=== PATIENT | female | born 1950 | race Caucasian/White ===

== ENCOUNTER 2017-09-17 09:52 | Observation (INO) ==
--- NOTE | 2017-09-17 10:07 | Emergency Department Note ---
Disposition Clinical Impression: Weakness Disposition: Still a Patient Referrals: Sushil Robledo DO [Primary Care Provider] - Forms: ED Satisfaction Letter Time of Disposition: 10:14 Weakness HPI - General Chief complaint: ED Weakness Stated complaint: weakness Time Seen by Provider: 09/17/17 09:57 Source: patient, EMS Mode of arrival: EMS Limitations: no limitations Nursing Notes Reviewed: Yes Vital Signs Reviewed: Yes - History of Present Illness HPI Narrative: Vision feels generally weak. No localization. She states she fell but denies injury other than bumping her right elbow. She states her family told her her speech seems slurred but she denies this. She thinks she just has a dry mouth. Pt Subjective Complaint: generalized weakness/fatigue Onset (ago): hour(s) Duration: constant Location: generalized Pain Scale: 0 Improves with: none Worsens with: movement Associated symptoms: Reports: denies other symptoms - Related Data Allergies Allergy/AdvReac Type Severity Reaction Status Date / Time No Known Allergies Allergy Verified 09/17/17 09:57 All systems ED: reviewed and negative except as stated. Constitutional: Reports: weakness Eyes: Reports: as per HPI ENT ED: Reports: as per HPI Cardiovascular: Reports: as per HPI Respiratory: Reports: as per HPI Gastrointestinal: Reports: as per HPI Genitourinary: Reports: as per HPI Musculoskeletal: Reports: as per HPI Integumentary: Reports: as per HPI Neurological: Reports: as per HPI Psychiatric: Reports: as per HPI Endocrine: Reports: as per HPI Hematological/Lymphatic: Reports: as per HPI Allergic/Immunologic: Reports: as per HPI Past Medical History - Past Medical History Source: patient Medical history: Reports: other Psychiatric history: Reports: anxiety, depression - Social History Smoking Status: Never smoker Smokeless Tobacco Status: No Alcohol use: Reports: none Drug use: Reports: none Physical Exam - General Limitations: no limitations General appearance: alert, in no apparent distress - Head Head exam: atraumatic - Eye Eye exam: Present: normal appearance, PERRL - ENT ENT exam: normal exam, mucous membranes dry - Neck Neck exam: Present: normal inspection - Chest Chest inspection: Present: normal inspection, symmetric chest wall rise - Respiratory Respiratory exam: Present: normal lung sounds bilaterally - Cardiovascular Cardiovascular exam: Present: regular rate, normal rhythm - Abdominal Exam Abdominal exam: Present: soft, Non-Tender. Absent: tenderness - Rectal Exam Rectal exam: Present: deferred - Extremities Exam Extremities exam: Present: normal inspection - Neurological Exam Neurological exam: Present: alert, oriented X3, CN II-XII intact, other (Equal strength in her upper and lower extremities bilaterally. No facial droop or asymmetry.) - Psychiatric Psychiatric exam: Present: normal affect, normal mood - Skin Skin exam: Present: warm, dry, intact Course Course Narrative: Patient presents with generalized weakness. Her symptoms are inconsistent with an acute stroke. I we will check labs and urinalysis and evaluate for an acute metabolic or infectious process - Reevaluation(s) Reevaluation #1: Visual history obtained from family. They state this morning the patient was found cool to the touch and slow to respond. They states her eyes looked droopy and they thought her speech was slurred. I will obtain a CT scan of her head Reevaluation #2: Care to be endorsed to Dr. Amaya at 11am ending labs, CT head, reevaluation. He will complete a final disposition Vital Signs Temperature 97.4 F L 09/17/17 09:57 Pulse Rate 72 09/17/17 09:57 Respiratory Rate 16 09/17/17 09:57 Blood Pressure 116/80 09/17/17 09:57 O2 Sat by Pulse Oximetry 95 09/17/17 09:57 Temperature 97.4 F L 09/17/17 09:57 Pulse Rate 84 09/17/17 10:23 Respiratory Rate 16 09/17/17 10:23 Blood Pressure 116/80 09/17/17 10:23 O2 Sat by Pulse Oximetry 95 09/17/17 10:23 Oxygen Delivery Oxygen Delivery Nasal Cannula Weakness - EKG Data EKG attestation: Yes I reviewed and interpreted this EKG. EKG results narrative: Normal sinus rhythm with PVCs rate 73 OK 186 QRS 106 QT/QTc 420/446. Left axis deviation.
[2017-09-17 10:39] LABS: Basophils # 0.1 K/mcL (0.0-0.2); Basophils % 0.4 %; Eosinophils # 0.3 K/mcL (0.0-0.6); Eosinophils % 2.2 %; Hematocrit 49.2 % (35.3-44.9); Hemoglobin 15.5 g/dL (11.5-15.4); Immature Granulocytes % 0.3 % (0-4); Lymphocytes # 1.7 K/mcL (0.6-4.6); Lymphocytes % 14.3 %; Mean Corpuscular HGB Conc 31.5 g/dL (31.6-35.5); Mean Corpuscular Hemoglobin 25.7 pg (28.0-33.3); Mean Corpuscular Volume 81.5 fL (83.0-100.0); Mean Platelet Volume 9.8 fL (9.4-12.4); Monocytes # 0.9 K/mcL (0.0-1.3); Monocytes % 7.3 %; Neutrophils # 9.1 K/mcL (1.6-8.9); Platelet Count 256 K/mcL (140-400); Red Blood Count 6.04 M/mcL (3.82-4.97); Red Cell Distribution Width 14.4 % (11.5-14.5); Segmented Neutrophils % 75.5 %
[2017-09-17 10:54] LABS: Alanine Aminotransferase 11 Units/L (0-55); Albumin 3.6 g/dL (3.5-5.0); Albumin/Globulin Ratio 1.1 (1.1-2.2); Alkaline Phosphatase 32 Units/L (38-126); Aspartate Amino Transferase 16 Units/L (5-34); BUN/Creatinine Ratio 20 (6-26); Blood Urea Nitrogen 16 mg/dL (7-20); Calcium 9.2 mg/dL (8.6-10.8); Carbon Dioxide 23 mEq/L (19-29); Chloride 107 mEq/L (98-109); Globulin 3.4 g/dL (2.4-3.5); Glucose 93 mg/dL (70-99); Osmolality,Calculated 287 (280-300); Potassium 4.3 mEq/L (3.5-4.5); Sodium 138 mEq/L (136-145); eGFR For African Americans > 60 (> 60); eGFR For Non-African Americans > 60 (> 60)
--- NOTE | 2017-09-17 11:47 | Emergency Department Note ---
Disposition Clinical Impression: Weakness, Slurred speech Disposition: Admitted As Inpatient Time of Disposition: 13:02 Weakness HPI - General Chief complaint: ED Weakness Stated complaint: weakness Time Seen by Provider: 09/17/17 09:57 Source: patient, EMS Mode of arrival: EMS Limitations: no limitations Nursing Notes Reviewed: Yes Vital Signs Reviewed: Yes - History of Present Illness HPI Narrative: Mrs. Fritz, a 66-year-old female, presents from home with daughter and granddaughters bedside for evaluation of weakness. Onset over the past 1-2 days. This morning, patient fell twice; once in the bathroom and once her room. This was before she taken her morning medications. No loss of consciousness. Patient denies head trauma. Her only reported injury is hitting her left elbow for which she has no functional complaints. Patient notes she feels generally weak with no notable localization. Family notes mild slurring of speech this morning however patient denies this. Patient does note urinary frequency and urgency with no burning or pain with urination and no hesitancy. Patient lives at home with her 2 granddaughters. Home medications: Ativan, bupropion, metoprolol, Celexa, levothyroxine; unknown dosages Patient has a pacemaker in place predisposing her from having an MRI. Pt Subjective Complaint: generalized weakness/fatigue Location: generalized Pain Scale: 0 Improves with: none Worsens with: movement Associated symptoms: Reports: denies other symptoms - Related Data Home Medications Medication Instructions Recorded Confirmed BuPROPion SR (12 HR) [Wellbutrin 150 mg PO DAILY 09/17/17 09/17/17 SR] Citalopram Hydrobromide 20 mg PO DAILY 09/17/17 09/17/17 [Citalopram HBr] LORazepam [Ativan] 1 mg PO TID 09/17/17 09/17/17 Levothyroxine [Synthroid] 50 mcg PO DAILY 09/17/17 09/17/17 Metoprolol Succinate 200 mg PO DAILY 09/17/17 09/17/17 Omeprazole [PriLOSEC] 20 mg PO DAILY 09/17/17 09/17/17 Allergies Allergy/AdvReac Type Severity Reaction Status Date / Time No Known Allergies Allergy Verified 09/17/17 12:33 All systems ED: reviewed and negative except as stated. Review of Systems: As Per HPI Constitutional: Reports: weakness Eyes: Reports: as per HPI ENT ED: Reports: as per HPI Cardiovascular: Reports: as per HPI Respiratory: Reports: as per HPI Gastrointestinal: Reports: as per HPI Genitourinary: Reports: as per HPI Musculoskeletal: Reports: as per HPI Integumentary: Reports: as per HPI Neurological: Reports: as per HPI Psychiatric: Reports: as per HPI Endocrine: Reports: as per HPI Hematological/Lymphatic: Reports: as per HPI Allergic/Immunologic: Reports: as per HPI Past Medical History - Past Medical History Medical history: Reports: other Psychiatric history: Reports: anxiety, depression - Social History Smoking Status: Never smoker Smokeless Tobacco Status: No Alcohol use: Reports: none Drug use: Reports: none Physical Exam Vital Signs Reviewed General: Patient is alert, oriented, and in no acute distress. HEENT: No facial asymmetry. Head is normocephalic and atraumatic. PERRLA, EOMI. oral mucosa moist. Trachea midline. No hematoma, ecchymosis, abrasions on patient's face or scalp. Cardiovascular: Heart regular rate and rhythm without clicks, rubs, gallops, or murmurs. No JVD. PMI nondisplaced. Bilateral radial and posterior tibial pulses 2/4 equal. Trace pedal edema bilaterally. Respiratory: Symmetric chest rise with good respiratory effort. Bilateral breath sounds are clear without wheezing, crackles, or rhonchi. Abdomen: Bowel sounds present normoactive x-4 quadrants. Abdomen is soft, nondistended, and nontender. No organomegaly noted. Musculoskeletal: Muscle strength 5/5 and symmetric bilaterally in upper and lower extremities. Neuro: Cranial nerves II through XII without deficit. Sensation light touch intact. No pronator drift. No limb ataxia. Negative [id number], negative finger to nose. Psych: Patient's affect is appropriate for situation. - General Limitations: no limitations General appearance: alert, in no apparent distress Course Course Narrative: Patient received on sign out from the day team, Dr. Woody. Patient's lab work is unremarkable given her complaint. CT head is negative. Urinalysis does not show UTI. The patient does not currently have slurred speech and mild evaluation, there is familial concern for slurred speech this morning. Cannot rule out TIA at this time. Patient is neurologically intact on my evaluation. Patient would benefit from an MRI, her pacemaker precludes her from having this study performed. She will need serial neurologic exams and repeat CT head in 24 hours. Additionally, patient has multiple medications which could be sedating which could potentially contribute to her presentation this morning as described by family. I discussed this with the family and with the patient. They are in agreement to admission for continued evaluation and management. I discussed the patient with the admitting hospitalist, Dr. Townsend, who agrees to accept the patient for continued evaluation and management. Vital Signs Temperature 97.4 F L 09/17/17 09:57 Pulse Rate 72 09/17/17 09:57 Respiratory Rate 16 09/17/17 09:57 Blood Pressure 116/80 09/17/17 09:57 O2 Sat by Pulse Oximetry 95 09/17/17 09:57 Temperature 98.1 F 09/17/17 19:35 Pulse Rate 72 09/17/17 19:35 Respiratory Rate 16 09/17/17 19:35 Blood Pressure 106/67 09/17/17 19:35 O2 Sat by Pulse Oximetry 92 09/17/17 19:35 Oxygen Delivery Oxygen Delivery Room Air Weakness - Lab Data Result diagrams: 09/17/17 10:33 09/17/17 10:33 Lab Results 09/17/17 09/17/17 09/17/17 Range/Units 10:28 10:33 10:33 WBC 12.1 H (4.3-11.1) K/mcL RBC 6.04 H (3.82-4.97) M/mcL Hgb 15.5 H (11.5-15.4) g/dL Hct 49.2 H (35.3-44.9) % MCV 81.5 L (83.0-100.0) fL MCH 25.7 L (28.0-33.3) pg MCHC 31.5 L (31.6-35.5) g/dL RDW 14.4 (11.5-14.5) % Plt Count 256 (140-400) K/mcL MPV 9.8 (9.4-12.4) fL Immature Gran % 0.3 (0-4) % Seg Neutrophils % 75.5 % Lymphocytes % 14.3 % Monocytes % 7.3 % Eosinophils % 2.2 % Basophils % 0.4 % Neutrophils # 9.1 H (1.6-8.9) K/mcL Lymphocytes # 1.7 (0.6-4.6) K/mcL Monocytes # 0.9 (0.0-1.3) K/mcL Eosinophils # 0.3 (0.0-0.6) K/mcL Basophils # 0.1 (0.0-0.2) K/mcL Sodium 138 (136-145) mEq/L Potassium 4.3 (3.5-4.5) mEq/L Chloride 107 (98-109) mEq/L Carbon Dioxide 23 (19-29) mEq/L BUN 16 (7-20) mg/dL Creatinine 0.80 (0.57-1.11) mg/dL Est GFR ( Amer) > 60 (> 60) Est GFR (Non-Af Amer) > 60 (> 60) BUN/Creatinine Ratio 20 (6-26) Glucose 93 (70-99) mg/dL POC Glucose 93 H (58-89) Calculated Osmolality 287 (280-300) Calcium 9.2 (8.6-10.8) mg/dL Total Bilirubin 1.0 (0.2-1.2) mg/dL AST 16 (5-34) Units/L ALT 11 (0-55) Units/L Alkaline Phosphatase 32 L (38-126) Units/L Troponin I (0-0.03) ng/mL Serum Total Protein 7.0 (6.0-8.3) g/dL Albumin 3.6 (3.5-5.0) g/dL Globulin 3.4 (2.4-3.5) g/dL Albumin/Globulin Ratio 1.1 (1.1-2.2) Urine Color (Yellow) Urine Clarity (Clear) Urine pH (5.0-8.0) pH Units Ur Specific Fonda (1.010-1.025) Urine Protein (Neg-Trace) mg/dL Urine Glucose (UA) (Normal) mg/dL Urine Ketones (Negative) mg/dL Urine Blood (Negative) Urine Nitrite (Negative) Urine Bilirubin (Negative) Urine Urobilinogen (Normal) mg/dL Ur Leukocyte Esterase (Negative) Urine Microscopic RBC (0-3) per hpf Urine Microscopic WBC (0-3) per hpf Ur Squamous Epith Cells (None-Few) per lpf Urine Bacteria (None-Few) per hpf Hyaline Casts (None-Few) per lpf 09/17/17 09/17/17 Range/Units 10:33 11:57 WBC (4.3-11.1) K/mcL RBC (3.82-4.97) M/mcL Hgb (11.5-15.4) g/dL Hct (35.3-44.9) % MCV (83.0-100.0) fL MCH (28.0-33.3) pg MCHC (31.6-35.5) g/dL RDW (11.5-14.5) % Plt Count (140-400) K/mcL MPV (9.4-12.4) fL Immature Gran % (0-4) % Seg Neutrophils % % Lymphocytes % % Monocytes % % Eosinophils % % Basophils % % Neutrophils # (1.6-8.9) K/mcL Lymphocytes # (0.6-4.6) K/mcL Monocytes # (0.0-1.3) K/mcL Eosinophils # (0.0-0.6) K/mcL Basophils # (0.0-0.2) K/mcL Sodium (136-145) mEq/L Potassium (3.5-4.5) mEq/L Chloride (98-109) mEq/L Carbon Dioxide (19-29) mEq/L BUN (7-20) mg/dL Creatinine (0.57-1.11) mg/dL Est GFR ( Amer) (> 60) Est GFR (Non-Af Amer) (> 60) BUN/Creatinine Ratio (6-26) Glucose (70-99) mg/dL POC Glucose (58-89) Calculated Osmolality (280-300) Calcium (8.6-10.8) mg/dL Total Bilirubin (0.2-1.2) mg/dL AST (5-34) Units/L ALT (0-55) Units/L Alkaline Phosphatase (38-126) Units/L Troponin I 0.01 (0-0.03) ng/mL Serum Total Protein (6.0-8.3) g/dL Albumin (3.5-5.0) g/dL Globulin (2.4-3.5) g/dL Albumin/Globulin Ratio (1.1-2.2) Urine Color Yellow (Yellow) Urine Clarity Clear (Clear) Urine pH 7.0 (5.0-8.0) pH Units Ur Specific Fonda 1.023 (1.010-1.025) Urine Protein Trace (Neg-Trace) mg/dL Urine Glucose (UA) Normal (Normal) mg/dL Urine Ketones Negative (Negative) mg/dL Urine Blood Negative (Negative) Urine Nitrite Negative (Negative) Urine Bilirubin Negative (Negative) Urine Urobilinogen Normal (Normal) mg/dL Ur Leukocyte Esterase Negative (Negative) Urine Microscopic RBC 0-3 (0-3) per hpf Urine Microscopic WBC 0-3 (0-3) per hpf Ur Squamous Epith Cells Many H (None-Few) per lpf Urine Bacteria None Seen (None-Few) per hpf Hyaline Casts Few (None-Few) per lpf Attestation Statement - Attestation Attestation: I, Bob Amaya, examined this patient and my medical decision-making was reviewed with the AIR CONDITIONING SUPERVISOR/PA/Advanced Practice Nurse/Resident Physician. I agree with the documented findings, disposition and treatment plan as described except to the extent set forth below. 66-year-old female received in sign out at the beginning of shift, presents to emergency Department with concerns of weakness, and aphasia and dysarthria. Family states symptoms started acutely this morning but however they have improved significantly and patient is at her baseline in the emergency department during my evaluation. CT of the head was negative for acute intracranial hemorrhage or fracture. Patient did fall this morning secondary to her weakness. I cannot find focal neurologic deficit during my exam the emergency department. Patient will be admitted to the hospital for further evaluation of her weakness and possible altered mental status and difficulty with speech. NIH Stroke Scale - Level of Consciousness LOC: Alert - LOC Questions LOC Questions: Answers both correctly - LOC Commands LOC Commands: Performs both correctly - Best Gaze Best Gaze: Normal - Visual Visual: No visual loss - Facial Palsy Facial Palsy: Normal - Motor Arms Motor Arm-Left: No drift for 10 seconds Motor Arm-Right: No drift for 10 seconds - Motor Legs Motor Leg-Left: No drift for 5 seconds Motor Leg-Right: No drift for 5 seconds - Limb Ataxia Limb Ataxia: Absent of affected limb too weak to perform exam - Sensory Sensory: Normal - Best Language Best Language: No aphasia - Dysarthria Dysarthria: Normal - Extinction and Inattention Extinction and Inattention: Normal - NIHSS Total Score NIHSS Total Score: 0
[2017-09-17 12:06] LABS: Bilirubin,Urine Negative (Negative); Blood,Urine Negative (Negative); Clarity,Urine Clear (Clear); Color,Urine Yellow (Yellow); Glucose,Urine (UA) Normal (Normal); Ketones,Urine Negative (Negative); Leukocyte Esterase,Urine Negative (Negative); Nitrite,Urine Negative (Negative); Protein,Urine Trace mg/dL (Neg-Trace); Specific Gravity,Urine 1.023 (1.010-1.025); Urobilinogen,Urine Normal (Normal)
[2017-09-17 12:11] LABS: Bacteria,Urine None Seen per hpf (None-Few); Hyaline Casts,Urine Few per lpf (None-Few); RBC,Urine 0-3 per hpf (0-3); Squamous Epithelial Cell,Urine Many per lpf (None-Few); WBC,Urine 0-3 per hpf (0-3)
[2017-09-17] MEDS ORDERED: Ondansetron ODT 4 MG TAB.RAPDIS SL PRN (13:29)
[2017-09-17] MEDS ORDERED: Naloxone 0.4 MG/ML INJ IVP PRN (13:29)
--- NOTE | 2017-09-17 15:01 | Internal Med History&Physical ---
<Silvia Beach - Bret Filed: 09/17/17 15:31> Date of Encounter: 09/17/17 Time of Encounter: 14:58 Assessment and Plan (1) TIA (transient ischemic attack) Current visit: Yes Status: Suspected 1 patient has been experiencing in the past couple days weakness she experience slurred speech and falls leaning to the right side when ambulating. CT of head was negative for any intracranial abnormalities. Unable to perform MRI to 2 pacemaker placement. We will recheck CT of head without contrast in a.m. 2 continue with neuro checks 3 we will check lipid profile and start on statin 4 patient states she is unable to take aspirin due to history of GI bleed 5 bedside swallow 6 PT OT evaluation 7 obtain cardiac echo 8 carotid Dopplers 9 neurology has been consulted Qualifiers: Transient cerebral ischemia type: unspecified Qualified Code(s): G45.9 - Transient cerebral ischemic attack, unspecified (2) Paroxysmal atrial fibrillation Current visit: No Status: Chronic 1 patient states that she has history of paroxysmal atrial fibrillation she is not anticoagulated and is not taking any aspirin due to history of GI bleed. She is on metoprolol as well as she has pacemaker. Her catering staff member's Dr. Maida Arce -bret saw her in April and interrogated her pacemaker at that time 2 continuous cardiac monitoring 3 we did consult cardiology concerning anticoagulation (3) Hypothyroid Current visit: No Status: Chronic 1 we will check TSH and continue her Synthroid Qualifiers: Hypothyroidism type: unspecified Qualified Code(s): E03.9 - Hypothyroidism , unspecified (4) DVT prophylaxis Current visit: Yes Status: Acute [facility] Internal Medicine - H&P: HPI Chief complaint: weakness fall slurred speech Admitted From: Emergency Dept Plans for Post Hospital Care: Home History of present illness: Ms. Fritz is a 66 year old female past medical history of GI bleed proximal atrial fibrillation AICD placement hypothyroid. Patient has been experiencing weakness, leading to her right side when she ambulates over the past 1-2 days. This morning she had an episode where she was weak and having difficulty walking she did fall twice without any trauma. Family noted that patient did have mild slurring of speech, denied any facial droop. Patient denies any chest pain shortness of breath fever cough urinary symptoms headaches or vision changes. She does have a history of atrial fibrillation states that she does have frequent palpitations. She presented to the ER with the above complaints. Upon arrival to the ER patient's symptoms had resolved ER workup was relatively benign CT of head was negative for any intracranial abnormalities. She has been admitted for further workup and evaluation. M Past Med Surg Social Fam HX - Past Medical History Medical history: other Psychiatric history: anxiety, depression - Social History Smoking Status: Never smoker Smokeless Tobacco Status: No Alcohol use: none Drug use: none - Family History Mother Living Status: Hx Family Respiratory Disorders: Yes (PE) Hx Family Neurologic Disorders: Yes (TIAs) Father Hx Family Neuromuscular Disorders: Yes (parkinsons) Internal Medicine - H&P: Meds BuPROPion SR (12 HR) [Wellbutrin SR] 150 mg PO DAILY 09/17/17 [History] Citalopram Hydrobromide [Citalopram HBr] 20 mg PO DAILY 09/17/17 [History] LORazepam [Ativan] 1 mg PO TID 09/17/17 [History] Levothyroxine [Synthroid] 50 mcg PO DAILY 09/17/17 [History] Metoprolol Succinate 200 mg PO DAILY 09/17/17 [History] Omeprazole [PriLOSEC] 20 mg PO DAILY 09/17/17 [History] 3 Allergy/AdvReac Type Severity Reaction Status Date / Time No Known Allergies Allergy Verified 09/17/17 12:33 All Systems PM: A 10-system review of systems was performed and is negative for pertinent findings except as documented above in the HPI. - Constitutional Constitutional: falls, weakness - EENT Eyes: no change in vision, no discharge, no pain, no photophobia Nose, mouth and throat: no dysphagia, no nasal discharge, no neck pain, no sore throat - Cardiovascular Cardiovascular ROS IM: palpitations, no chest pain, no diaphoresis, no dyspnea, no lightheadedness, no syncope - Respiratory Respiratory: no cough, no dyspnea, no wheezing, no excessive phlegm production - Gastrointestinal Gastrointestinal: no abdominal pain, no diarrhea, no hematemesis, no hematochezia, no melena, no nausea, no vomiting - Genitourinary Genitourinary: no change in urinary stream, no dysuria, no flank pain, no hematuria - Musculoskeletal Musculoskeletal ROS IM: no numbness, no tingling - Integumentary Integumentary IM: no rash, no unusual bruising - Neurological Neurological ROS: no confusion, no convulsions, no focal weakness, no numbness, no tingling, no tremor(s) - Hematologic/Lymphatic Hematologic/Lymphatic: no easy bruising - Constitutional Vitals: Temp Pulse Resp BP Pulse Ox 97.7 F 71 16 122/84 93 09/17/17 13:34 09/17/17 13:34 09/17/17 13:34 09/17/17 13:34 09/17/17 13:34 General appearance: Present: A&O X 3, answers questions appropriately - Head Head exam: Present: atraumatic, normocephalic - Eye Eye exam: Present: PERRL, conjuntiva pink, sclera anicteric Pupils: Present: PERRL - Neck Neck exam general surgery: Present: supple, trachea midline. Absent: lymphadenopathy - Respiratory Respiratory exam: Present: CTAB. Absent: accessory muscle use, rales, rhonchi, wheezes - Cardiovascular Cardiovascular exam: Present: RRR, +S1, +S2. Absent: diastolic murmur, gallop, rubs, systolic murmur - GI/Abdominal GI/Abdominal exam: Present: normal bowel sounds, soft, no peritoneal signs. Absent: distended, tenderness - Extremities Exam Extremities exam: Present: warm, radial pulses palpable and symmetrical. Absent : calf tenderness, cyanotic, pedal edema - Neurological Exam Neurological exam: Present: alert, CN II-XII intact, oriented X3, no focal deficits, strengths equal and symetr throughout. Absent: pronater drift, facial droop, speech deficit - Skin Skin exam: Present: dry, intact Internal Med - H&P Results - Labs CBC & Chem 7: 09/17/17 10:33 09/17/17 10:33 - EKG Data EKG shows normal: sinus rhythm - Diagnostic Studies Other Images Additional comments: Head CT 09/17/17 10:13 IMPRESSION: 1. No acute intracranial abnormality. 2. Chronic small vessel ischemic disease. D/ / Ap Swanson MD / Ap Swanson MD Interpreting Provider: Ap Swanson MD <Cary,Oniel P - Last Filed: 09/17/17 17:50> Date of Encounter: 09/17/17 Internal Medicine - H&P: HPI History of present illness: Ms. Fritz is a 66 year old female All Systems PM: A 10-system review of systems was performed and is negative for pertinent findings except as documented above in the HPI. - Constitutional Vitals: Temp Pulse Resp BP Pulse Ox 97.9 F 60 15 112/79 90 09/17/17 16:09 09/17/17 16:09 09/17/17 16:09 09/17/17 16:09 09/17/17 16:09 Internal Med - H&P Results - Labs CBC & Chem 7: 09/17/17 10:33 09/17/17 10:33 Labs: Cardiac Enzymes 09/17/17 Range/Units 16:51 Troponin I 0.01 (0-0.03) ng/mL - Attending Attestation I examined this patient and my medical decision-making was reviewed with the Resident Physician/RAG COLLECTOR. I agree with the documented findings, disposition and treatment plan as described except to the extent set forth below. Patient seen and examined. Chart reviewed. 66-year-old female who has history of a syncopal episode. Multiple risk factors/comorbid conditions noted. Patient needs further workup. Neurology on the board and we will follow their recommendations. Cardiology on the board and we will follow their recommendations.
--- NOTE | 2017-09-17 15:55 | Cardiology Consult Note ---
<Chaitanya Hawthorne - Last Filed: 09/17/17 16:48> Date of Encounter: 09/17/17 Time of Encounter: 15:41 Assessment and Plan (1) Paroxysmal atrial fibrillation Current Visit: No Status: Chronic Paroxysmal atrial fibrillation, currently in sinus rhythm not on anticoagulation The patient has not been anticoagulated previously due to history of GI bleeding [id number], mod-high risk of CVA, Anti-coagulation is recommended in this patient HAS-BLED score 2, moderate risk of bleeding complications This patient is at high risk for CVA without anti-coagulation despite bleeding risk The patient is unclear of the diagnosis, and is currently in sinus rhythm We will interrogate the pacemaker to determine Afib burden, recommendations to follow (2) TIA (transient ischemic attack) Current Visit: Yes Status: Suspected TIA in setting of PAF without anticoagulation Agree with statin, Anticoag addition pending pacer interrogation Further care directed by primary team Qualifiers: Transient cerebral ischemia type: unspecified Qualified Code(s): G45.9 - Transient cerebral ischemic attack, unspecified Discussion w patient/family: The assessment and plan as outlined above was discussed with the patient and/or family members who expressed understanding and agreement. All questions were answered. Thank you for involving us in the care of your patient. Please call with any questions. History of Present Illness Consult date: 09/17/17 Requesting physician: Silvia Beach Consult reason: Paroxysmal atrial fibrillation not on anticoagulation Chief complaint: Weakness and fall History of present illness: Ms. Fritz is a 66 year old female with history of PAF, AICD, and GI bleed who presented to the ED with weakness after a fall. The patient came to the ED today complaining of right sided and generalized weakness of 1-2 days duration, associated with two consecutive falls this morning. She went to the restroom this morning and had an atraumatic fall from which she was able to rise and ambulate, however upon reaching her bedroom she again fell, and felt too weak to stand on her own. She denies any changes in vision, confusion, facial droop at that time. She says that nothing like this has happened before. It was not associated with chest pain or shortness of breath, however she admits to frequent palpitations. She denies any problems with cough or dyspnea, and she has not been sick recently. She does admit to a pertinent family history of a mother who suffered from TIAs, DVT/PE. When asked about her history of PAF/AICD placement, the patient is unable to provide any information. She says that her pharmacy benefit manager is Dr. Viera in [place], and that she does not know why she had an AICD implantation. She says that it was in 2007 , and that she remembers syncopating, and waking up to be told she needed this device implanted. She is checked yearly, and apparently was told that there were no abnormalities at her last appointment in April. She says that she has not had a GI bleed since 2005, and she denies any hematemesis or melena. On presentation to the ED, the patient's EKG showed NSR with PVCs, and she had a normal Head CT. Her Hgb was 15.5, Trop 0.01. Past Med Surg Social Fam HX - Past Medical History Medical history: other Psychiatric history: anxiety, depression - Social History Smoking Status: Never smoker Smokeless Tobacco Status: No Alcohol use: none Drug use: none - Family History Mother Living Status: Hx Family Respiratory Disorders: Yes (PE) Hx Family Neurologic Disorders: Yes (TIAs) Father Hx Family Neuromuscular Disorders: Yes (parkinsons) Medications and Allergies BuPROPion SR (12 HR) [Wellbutrin SR] 150 mg PO DAILY 09/17/17 [History] Citalopram Hydrobromide [Citalopram HBr] 20 mg PO DAILY 09/17/17 [History] LORazepam [Ativan] 1 mg PO TID 09/17/17 [History] Levothyroxine [Synthroid] 50 mcg PO DAILY 09/17/17 [History] Metoprolol Succinate 200 mg PO DAILY 09/17/17 [History] Omeprazole [PriLOSEC] 20 mg PO DAILY 09/17/17 [History] 3 Allergy/AdvReac Type Severity Reaction Status Date / Time No Known Allergies Allergy Verified 09/17/17 12:33 - Constitutional Constitutional: frequent falls, weakness, no chills, no fatigue, no fever(s), no headache(s), no malaise, no night sweats - EENT Nose, mouth and throat: dysphagia, no epistaxis, no sinus pain - Cardiovascular Cardiovascular: palpitations, rapid heart rate, no chest pain at rest, no chest pain with exertion, no claudication, no diaphoresis, no irregular heart rhythm ( She does not know about this, although she remembers being told she had tachycardia), no leg edema - Respiratory Respiratory: no cough, no dyspnea - Gastrointestinal Gastrointestinal: no abdominal pain, no coffee ground emesis, no diarrhea, no hematemesis, no hematochezia, no melena, no nausea - Genitourinary Genitourinary: no dysuria - Musculoskeletal Musculoskeletal: abnormal gait (Reports leaning toward right) - Integumentary Integumentary: rash - Neurological Neurological: no abnormal speech, no loss of vision, no memory loss, no numbness , no syncope - Psychiatric Psychiatric: no anxiety, no depression, no hallucinations Physical Examination Vital Signs, Last 4 Hours Temp Pulse Resp BP Pulse Ox 09/17/17 13:34 97.7 F 71 16 122/84 93 General: Conversant, No Apparent Distress HEENT: Atraumatic, Normocephaly, Mucus Membranes Moist Neck: No JVD, Normal carotid pulses Cardiac: Reg Rate and Rhythm, Normal S1 and S2, No Murmur Lungs: Normal Breath Sounds, No Wheeze, Rales, Rhonchi Neuro: Alert and responsive, No focal deficits noted Abdomen: Soft, Non-Tender Skin: No rashes noted on visualized skin Musculoskeletal: No Chest Wall Tenderness Extremities: No Clubbing, No Cyanosis, Normal Pulses, Other (+1 nonpitting edema RLE) Results 09/17/17 10:33 09/17/17 10:33 Consult Discharge Plan - Plan Referrals: Sushil Robledo, [Primary Care Provider] - <Sushil Corral - Last Filed: 09/17/17 17:43> Date of Encounter: 09/17/17 - Attending Attestation I examined this patient and my medical decision-making was reviewed with the Resident Physician. I agree with the documented findings, disposition and treatment plan as described except to the extent set forth below. 1. Paroxysmal atrial fib, now in NSR, unclear degree of a fib burden, has not been on anticoagulation although risk benefit ratio would appear to favor systemic anticoagulation. Will obtain records from Dr. Blevins' office, for indication for AICD and recent pacer interrogation, compare to pacer interrogation in AM to determine A fib burden. Pt would benefit from daily ASA 81 mg q d at least, pt is hesitant to take due to hx GI bleed, will discuss further when old records available. 2. TIA - symptoms concerning but have resolved, echo ordered to eval LV size and function, LA size and function, to eval possible cardioembolic sources 3. AICD - no clear indication for placement, following with Dr. Viera, await old records. Assessment and Plan Discussion w patient/family: The assessment and plan as outlined above was discussed with the patient and/or family members who expressed understanding and agreement. All questions were answered. Thank you for involving us in the care of your patient. Please call with any questions. History of Present Illness History of present illness: Ms. Fritz is a 66 year old female All Systems Review: A 10-system review of systems was performed and is negative for pertinent findings except as documented above in the HPI. Physical Examination Vital Signs, Last 4 Hours Temp Pulse Resp BP Pulse Ox 09/17/17 16:09 97.9 F 60 15 112/79 90 Results 09/17/17 10:33 09/17/17 10:33 Lab Results 09/17/17 09/17/17 16:51 16:51 INR 1.1 APTT 28.9 Troponin I 0.01
--- NOTE | 2017-09-17 16:18 | Neurology - Consult Note ---
Date of Encounter: 09/17/17 Time of Encounter: 16:15 Assessment and Plan (1) TIA (transient ischemic attack) Current Visit: Yes Status: Suspected I agree that most likely we are dealing with an episode of transient ischemia. Perhaps secondary to a small cardioembolic embolus. She has a history of paroxysmal nature fibrillation however is not anticoagulated because of a history of GI bleeding. I would recommend carotid duplex Doppler study as well as echocardiogram. I would recommend perhaps a trial of Plavix 75 mg daily. Otherwise do not feel she needs any additional therapies after discharge. She should be started on a statin. Outside of her age she has no other stroke risk factors. Qualifiers: Transient cerebral ischemia type: unspecified Qualified Code(s): G45.9 - Transient cerebral ischemic attack, unspecified History of Present Illness HPI: Ms. Fritz is a 66 year old female who is being seen for neurologic consultation secondary to transient slurred speech and balance difficulty and dizziness which have now resolved. The history she gives me is slightly different from what was given to other providers. She informs me that she awakened in the middle 90s bathroom and noticed that she was somewhat off balance. He apparently fell and ultimately was able to find her way back to the bed. This morning she awakened and got out of bed and lost her balance and fell again. Family members at that time felt that she was slurring her speech. She denies any vision changes denied numbness tingling or weakness of the face arms or legs. She denied headache. She did admit to feeling dizzy but denies a spinning sensation. She said the episode seemed to wax and wane during most normal and ultimately resolved after about 2 hours she states. He denied any confusion associated, she denied taking any new medications. Denies alcohol or any recreational drugs. Currently she feels back to her baseline. She does have a history of paroxysmal atrial fibrillation and has a pacemaker and was unable to get an MRI scan of the head. CT scan of the head however was unremarkable. She does have a history of GI bleeding and subsequently is not anticoagulated. Past Med Surg Social Fam HX - Past Medical History Medical history: other Psychiatric history: anxiety, depression - Social History Smoking Status: Never smoker Smokeless Tobacco Status: No Alcohol use: none Drug use: none - Family History Mother Living Status: Hx Family Respiratory Disorders: Yes (PE) Hx Family Neurologic Disorders: Yes (TIAs) Father Hx Family Neuromuscular Disorders: Yes (parkinsons) Medications and Allergies BuPROPion SR (12 HR) [Wellbutrin SR] 150 mg PO DAILY 09/17/17 [History] Citalopram Hydrobromide [Citalopram HBr] 20 mg PO DAILY 09/17/17 [History] LORazepam [Ativan] 1 mg PO TID 09/17/17 [History] Levothyroxine [Synthroid] 50 mcg PO DAILY 09/17/17 [History] Metoprolol Succinate 200 mg PO DAILY 09/17/17 [History] Omeprazole [PriLOSEC] 20 mg PO DAILY 09/17/17 [History] 3 Allergy/AdvReac Type Severity Reaction Status Date / Time No Known Allergies Allergy Verified 09/17/17 12:33 All Systems: A 10-system review of systems was performed and is negative for pertinent findings except as documented above in the HPI. Review of Systems: 10 point review of systems is consistent with history of present illness and otherwise negative. Physical Examination - Vital Signs Vital Signs: Initial Vital Signs Temp Pulse Resp BP Pulse Ox 97.4 F L 72 16 116/80 95 09/17/17 09:57 09/17/17 09:57 09/17/17 09:57 09/17/17 09:57 09/17/17 09:57 - Neurologic Detailed motor examination: full strength in all major muscle groups Motor examination - right side: 5/5: deltoids, biceps, triceps, wrist flexion, wrist extension, clinical professor, hip flexors, tibialis Anterior, quadriceps, toe extension (EHL), plantarflexion Motor examination - left side: 5/5: deltoids, biceps, triceps, wrist flexion, wrist extension, hip flexors, clinical professor, quadriceps, tibialis Anterior, toe extension (EHL), plantarflexion Reflexes: Biceps: 1+ (Bilaterally), Triceps: 1+ (Bilaterally), Brachioradialis: 1+ (Bilaterally), Patella: 1+ ("), Achilles: 1+ (") Mental Status Examination: awake, alert, oriented to person, oriented to place, oriented to time, follows commands appropriately, answers questions appropriately, no agnosia, no aphasia, no aproxia Cranial nerve examination: PERRL, EOMI, visual davison intact, corneal reflexes brisk symmetrically, sensory to face intact, mastication intact, no facial asymmetry is present, no dysarthria, hearing is intact symmetrically, soft palate elevates bilaterally upon phonation, gag reflex intact, flexes SCM and trapezius muscles symmetrically with full power, tongue protrudes midline, no atrophy or facial fasiculations present Cerebellar examination: no dysmetria, performs finger to nose and heel to hanks symmetrically without ataxia, no gait ataxia, no truncal ataxia, no difficulty with rapid alternating movements Results - Laboratory Findings CBC and BMP: 09/17/17 10:33 09/17/17 10:33 Abnormal lab findings: Abnormal lab results WBC 12.1 K/mcL (4.3-11.1) H 09/17/17 10:33 RBC 6.04 M/mcL (3.82-4.97) H 09/17/17 10:33 Hgb 15.5 g/dL (11.5-15.4) H 09/17/17 10:33 Hct 49.2 % (35.3-44.9) H 09/17/17 10:33 MCV 81.5 fL (83.0-100.0) L 09/17/17 10:33 MCH 25.7 pg (28.0-33.3) L 09/17/17 10:33 MCHC 31.5 g/dL (31.6-35.5) L 09/17/17 10:33 Neutrophils # 9.1 K/mcL (1.6-8.9) H 09/17/17 10:33 POC Glucose 93 (58-89) H 09/17/17 10:28 Alkaline Phosphatase 32 Units/L (38-126) L 09/17/17 10:33 Ur Squamous Epith Cells Many per lpf (None-Few) H 09/17/17 11:57 Consult Discharge Plan - Plan Referrals: Colopy,Sushil Cavazos DO [Primary Care Provider] -
[2017-09-17] MEDS: *HR* LORazepam 1 MG TABLET PO SCH ×2 (16:46→20:50)
[2017-09-17] MEDS: Acetaminophen 325 MG TABLET PO PRN (16:51)
[2017-09-17 17:07] LABS: INR 1.1; Prothrombin Time 11.9 Seconds (9.4-12.1)
[2017-09-17 17:10] LABS: Activated Partial Thrombo Time 28.9 Seconds (26.0-36.0)
[2017-09-18] MEDS: Acetaminophen 325 MG TABLET PO PRN ×3 (00:39→20:26)
[2017-09-18 05:23] LABS: Basophils % 0.4 %; Eosinophils # 0.3 K/mcL (0.0-0.6); Eosinophils % 3.6 %; Hematocrit 46.2 % (35.3-44.9); Hemoglobin 14.5 g/dL (11.5-15.4); Immature Granulocytes % 0.3 % (0-4); Lymphocytes # 2.7 K/mcL (0.6-4.6); Lymphocytes % 29.9 %; Mean Corpuscular HGB Conc 31.4 g/dL (31.6-35.5); Mean Corpuscular Hemoglobin 25.7 pg (28.0-33.3); Mean Corpuscular Volume 81.9 fL (83.0-100.0); Mean Platelet Volume 10.8 fL (9.4-12.4); Monocytes # 1.2 K/mcL (0.0-1.3); Neutrophils # 4.8 K/mcL (1.6-8.9); Platelet Count 230 K/mcL (140-400); Red Blood Count 5.64 M/mcL (3.82-4.97); Red Cell Distribution Width 14.6 % (11.5-14.5); Segmented Neutrophils % 52.8 %
[2017-09-18 05:42] LABS: BUN/Creatinine Ratio 24 (6-26); Blood Urea Nitrogen 20 mg/dL (7-20); Calcium 9.3 mg/dL (8.6-10.8); Carbon Dioxide 22 mEq/L (19-29); Chloride 108 mEq/L (98-109); Chol/HDL Ratio 4.3 (0-4.9); Cholesterol 170 mg/dL (< 200); Glucose 91 mg/dL (70-99); HDL Cholesterol 40 mg/dL (40-59); LDL Cholesterol,Calculated 111 mg/dL (0-99); Osmolality,Calculated 290 (280-300); Potassium 3.9 mEq/L (3.5-4.5); Sodium 139 mEq/L (136-145); Triglycerides 95 mg/dL (< 150); eGFR For African Americans > 60 (> 60); eGFR For Non-African Americans > 60 (> 60)
[2017-09-18] MEDS: BuPROPion SR (12 HR) 150 MG TABLET PO SCH (09:49)
[2017-09-18] MEDS: *HR* LORazepam 1 MG TABLET PO SCH ×3 (09:49→21:03)
[2017-09-18] MEDS: Metoprolol XL (24 HR) Succ 50 MG TAB.ER.24H PO SCH (09:49)
--- NOTE | 2017-09-18 11:03 | Cardiology Progress Note ---
Date of Encounter: 09/18/17 Time of Encounter: 10:00 Assessment and Plan (1) Paroxysmal atrial fibrillation Current Visit: No Status: Chronic Per cardiology: -Known Paroxysmal atrial fibrillation, currently in sinus rhythm not on anticoagulation -The patient has not been anticoagulated previously due to history of GI bleeding -[id number], mod-high risk of CVA, Anti-coagulation is recommended in this patient. I discussed at length with patient regarding recommendations for anticoagulation and increased risk of CVA or embolic event. Patient states understanding of icnreased risk, however patient would like to discuss anticoagulation with primary shirt creaser, . -HAS-BLED score 2, moderate risk of bleeding complications -This patient is at high risk for CVA without anti-coagulation despite bleeding risk -Average HR previous 12 hours noted to be 84, sinus rhythm. -On beta melonie. -Cardiology will sign off. Recommend patient follow with primary shirt creaser after discharge. (2) TIA (transient ischemic attack) Current Visit: Yes Status: Suspected Per cardiology: -TIA in setting of PAF without anticoagulation. -At this time, patient refuses anticoagulation. -Further care directed by primary team Qualifiers: Transient cerebral ischemia type: unspecified Qualified Code(s): G45.9 - Transient cerebral ischemic attack, unspecified (3) Cardiomyopathy Current Visit: Yes Status: Chronic Per cardiology: -TTE this admission with LVEF 30-35%. -Has known AICD. -Patient follows with . -On beta melonie. -Will add low dose jelani inhibitor. -Recommend patient follow with primary shirt creaser. Qualifiers: Cardiomyopathy type: unspecified Qualified Code(s): I42.9 - Cardiomyopathy , unspecified Discussion w patient/family: The assessment and plan as outlined above was discussed with the patient who expressed understanding and agreement. All questions were answered. Thank you for involving us in the care of your patient. Please call with any questions. Discussed and reviewed with . Subjective Principal diagnosis: TIA, atrial fibrillation Interval history: Patient complains of fatigue today. Denies palpitations or fluttering. Objective Vital Signs Temperature 97.4 F L 09/17/17 09:57 Pulse Rate 72 09/17/17 09:57 Respiratory Rate 16 09/17/17 09:57 Blood Pressure 116/80 09/17/17 09:57 O2 Sat by Pulse Oximetry 95 09/17/17 09:57 Temperature 98.1 F 09/18/17 06:51 Pulse Rate 71 09/18/17 06:51 Respiratory Rate 16 09/18/17 06:51 Blood Pressure 120/84 09/18/17 06:51 O2 Sat by Pulse Oximetry 91 09/18/17 06:51 Oxygen Delivery Oxygen Delivery Room Air General: Conversant, No Apparent Distress HEENT: Atraumatic, Normocephaly, Mucus Membranes Moist Neck: No JVD, Normal carotid pulses Cardiac: Reg Rate and Rhythm, Normal S1 and S2, No Murmur Lungs: Normal Breath Sounds, No Wheeze, Rales, Rhonchi Neuro: Alert and responsive, No focal deficits noted Abdomen: Soft, Non-Tender Skin: No rashes noted on visualized skin Musculoskeletal: No Chest Wall Tenderness Extremities: No Clubbing, No Cyanosis, No Edema, Normal Pulses Results 09/18/17 03:29 09/18/17 03:29 Lab Results Impressions Head CT 09/17/17 10:13 IMPRESSION: 1. No acute intracranial abnormality. 2. Chronic small vessel ischemic disease. D/ / Ap Swanson MD / Ap Swanson MD Interpreting Provider: Ap Swanson MD Echocardiogram 09/17/17 13:36 Impressions: No evidence of pulmonary hypertension. Mildly dilated left ventricle. Severe global and segmental left ventricular systolic dysfunction. LVEF 30-35%. No significant valvular dysfunction. Left Ventricular Wall Motion: Rest Echo Findings The apex, apical inferior, mid inferior, basal inferior, apical anterior, mid anterior, basal anterior, apical septal, mid inferior septal, basal inferior septal, apical lateral, mid anterior lateral, basal anterior lateral, mid anterior septal, mid inferior lateral, basal anterior septal and basal inferior lateral snyder were hypokinetic. Findings: Study Quality * Technically adequate exam. Right Ventricle * Normal right ventricular structure and function. Right Atrium * Normal right atrial size. Aortic Valve * Trileaflet aortic valve with normal function. Interatrial Septum * No evidence of PFO by color Doppler. Aorta * Normally sized aortic root. Pericardium * The pericardium appears normal. Left Atrium * Mildly dilated left atrium. Device lead * A device lead was visualized in the right atrium and right ventricle. Tricuspid Valve * No tricuspid stenosis. * Trace tricuspid regurgitation. * No evidence of pulmonary hypertension. * Estimated RVSP is 22 mmHg. Left Ventricle * Mildly dilated left ventricle. * Severe global and segmental left ventricular systolic dysfunction. * Indeterminate diastolic function. * LVEF 30-35%. Pulmonic Valve * No pulmonic stenosis. * No pulmonic regurgitation. Mitral Valve * Normal mitral valve function. * No mitral stenosis. * Mild mitral regurgitation. IVC * Normal IVC dimensions and inspiratory collapse. Active Medications Acetaminophen (Tylenol) 650 mg PO Q6HR PRN PRN Reason: Mild Pain (1-3) Stop: 03/19/18 13:30 Last Admin: 09/18/17 00:39 Dose: 650 mg Atorvastatin Calcium (Lipitor) 40 mg PO HS [facility] Stop: 03/19/18 21:01 Last Admin: 09/17/17 20:50 Dose: 40 mg Bupropion HCl (Wellbutrin Sr) 150 mg PO DAILY [facility] Stop: 03/20/18 09:01 Last Admin: 09/18/17 09:49 Dose: 150 mg Citalopram Hydrobromide (Celexa) 20 mg PO DAILY [facility] Stop: 03/20/18 09:01 Last Admin: 09/18/17 09:49 Dose: 20 mg Levothyroxine Sodium (Synthroid) 50 mcg PO DAILY@0630 [facility] Stop: 03/20/18 06:31 Last Admin: 09/18/17 06:09 Dose: 50 mcg Lorazepam (Ativan) 1 mg PO TID [facility] Stop: 03/19/18 15:01 Last Admin: 09/18/17 09:49 Dose: 1 mg Metoprolol Succinate (Toprol Xl) 200 mg PO DAILY [facility] Stop: 03/20/18 09:01 Last Admin: 09/18/17 09:49 Dose: 200 mg Naloxone HCl (Narcan) 0.4 mg IVP Q2MIN PRN PRN Reason: Opioid Reversal Stop: 03/19/18 13:30 Omeprazole (Prilosec) 20 mg PO DAILY@0730 [facility] PRN Reason: Protocol Stop: 03/20/18 07:31 Last Admin: 09/18/17 09:48 Dose: 20 mg Ondansetron HCl (Zofran Odt) 4 mg SL Q8HR PRN PRN Reason: Nausea And Vomiting Stop: 03/19/18 13:30 Laboratory Tests 09/18/17 09/18/17 09/18/17 03:29 03:29 03:29 Hgb 14.5 Potassium 3.9 Creatinine 0.83 Magnesium 2.0 TSH 3.513 - Imaging and Cardiology Chest Xray: report reviewed Echo: report reviewed - EKG Interpretation EKG results cardiology: other (Telemetry reviewed with average HR previous 12 hours noted to be 84, sinus rhythm. PVCs, couplets, and triplets noted. PACs noted.) - VTE Documentation of Mechanical Device: Graduated compression elastic hosiery Consult Discharge Plan - Plan Referrals: Sushil Robledo DO [Primary Care Provider] -
[2017-09-18 13:02] LABS: Amphetamine Screen,Urine Negative ng/mL (Cutoff=1000); Barbiturate Screen,Urine Negative ng/mL (Cutoff=200); Benzodiazepines Screen,Urine Negative ng/mL (Cutoff=200); Cannabinoid Screen,Urine Negative ng/mL (Cutoff = 50); Cocaine Screen,Urine Negative ng/mL (Cutoff= 300); Opiate Screen,Urine Negative ng/mL (Cutoff=300); Phencyclidine Screen,Urine Negative ng/mL (Cutoff=25)
--- NOTE | 2017-09-18 13:43 | Internal Med Progress Note ---
Date of Encounter: 09/18/17 Time of Encounter: 13:41 - Assessment and plan (1) TIA (transient ischemic attack) Current Visit: Yes Status: Suspected Assessment and plan: with weakness, slurred speech and falls on day of presentation. Head CT negative. Concern for CVA but unable to have MRI secondary to pacemaker. Repeat head CT 09/18/17 nonacute. TTE with EF 30-35%, no evidence of PFO or cardiac source of emboli. Evaluated by Neurology who suspects TIA possibly secondary to small cardioembolic embolus and recommended anticoagulation. LDL 111, add statin. No further neurological testing required. Qualifiers: Transient cerebral ischemia type: unspecified Qualified Code(s): G45.9 - Transient cerebral ischemic attack, unspecified (2) Paroxysmal atrial fibrillation Current Visit: No Status: Chronic Assessment and plan: Patient reports being on anticoagulation in the past which was stopped due to GI bleeding but unsure if due to A. fib. Now with suspected TIA due to cardioembolic source as noted above. Evaluated by cardiology who noted [id number]- VASc 5, mod-high risk of CVA, Anti-coagulation is recommended. Patient initially hesitant due to previous GI bleed however she is now agreeable. Continue BB, Eliquis (3) Chronic systolic (congestive) heart failure Current Visit: Yes Status: Acute Assessment and plan: per hx. Follows with cardiology in [place]. TTE with EF 30-35%, unknown chronicity. Evaluated by cardiology who noted likely chronic as she has ICD. Need to obtain previous records to confirm. If EF is newly reduced (if >40% before) then will need [facility] to rule out ischemic component. Continue BB, add WENDY. (4) Hypothyroid Current Visit: No Status: Chronic Assessment and plan: per hx. TSH normal. Cont Levothyroxine Qualifiers: Hypothyroidism type: unspecified Qualified Code(s): E03.9 - Hypothyroidism , unspecified (5) DVT prophylaxis Current Visit: Yes Status: Acute Assessment and plan: Eliquis - Subjective Interval history: Seen and examined at bedside. Patient is new to me, information obtained from chart review and patient report. Since says she feels better today, still a little tired and weak but overall improved. She tells me she had 2 episodes of dizziness yesterday that resulted in a fall. Did not hit head, denies loss of consciousness. She also reports daughters telling her her speech was slurred. No known history of CVA. No chest pain, no shortness of breath. No lightheadedness or dizziness. No palpitations. - Constitutional Vitals: Temp Pulse Resp BP Pulse Ox 97.7 F 78 16 106/74 97 09/18/17 11:34 09/18/17 11:34 09/18/17 11:34 09/18/17 11:34 09/18/17 11:34 General appearance: Present: A&O X 3, morbidly obese, pleasant, no acute distress, answers questions appropriately - Head Head exam: Present: atraumatic, normocephalic - Eye Eye exam: Present: PERRL, conjuntiva pink, sclera anicteric Pupils: Present: PERRL - Neck Neck exam general surgery: Present: supple, trachea midline. Absent: lymphadenopathy - Respiratory Respiratory exam: Present: CTAB. Absent: accessory muscle use, rales, rhonchi, wheezes - Cardiovascular Cardiovascular exam: Present: RRR, +S1, +S2. Absent: diastolic murmur, gallop, rubs, systolic murmur - GI/Abdominal GI/Abdominal exam: Present: normal bowel sounds, soft, no peritoneal signs. Absent: distended, tenderness - Extremities Exam Extremities exam: Present: joint swelling, warm, radial pulses palpable and symmetrical. Absent: calf tenderness, cyanotic, pedal edema Additional comments: Bruising to right knee. - Back Exam Additional comments: Left side ecchymosis. - Neurological Exam Neurological exam: Present: CN II-XII intact, oriented X3, no focal deficits. Absent: pronater drift, facial droop, speech deficit - Skin Skin exam: Present: dry, intact Internal Medicine: Result - Labs CBC & Chem 7: 09/18/17 03:29 09/18/17 03:29 Labs: Short CBC 09/18/17 Range/Units 03:29 WBC 9.1 (4.3-11.1) K/mcL Hgb 14.5 (11.5-15.4) g/dL Hct 46.2 H (35.3-44.9) % Plt Count 230 (140-400) K/mcL Neutrophils # 4.8 (1.6-8.9) K/mcL BMP 09/18/17 03:29 Sodium 139 Potassium 3.9 Chloride 108 Carbon Dioxide 22 BUN 20 Creatinine 0.83 Glucose 91 Calcium 9.3 Cardiac Enzymes 09/17/17 09/17/17 Range/Units 16:51 22:02 Troponin I 0.01 0.00 (0-0.03) ng/mL - ABG Interpretation ABG results: PT/INR, D-dimer PT 11.9 Seconds (9.4-12.1) 09/17/17 16:51 - Impressions Impressions Echocardiogram 09/17/17 13:36 Impressions: No evidence of pulmonary hypertension. Mildly dilated left ventricle. Severe global and segmental left ventricular systolic dysfunction. LVEF 30-35%. No significant valvular dysfunction. Left Ventricular Wall Motion: Rest Echo Findings The apex, apical inferior, mid inferior, basal inferior, apical anterior, mid anterior, basal anterior, apical septal, mid inferior septal, basal inferior septal, apical lateral, mid anterior lateral, basal anterior lateral, mid anterior septal, mid inferior lateral, basal anterior septal and basal inferior lateral snyder were hypokinetic. Findings: Study Quality * Technically adequate exam. Right Ventricle * Normal right ventricular structure and function. Right Atrium * Normal right atrial size. Aortic Valve * Trileaflet aortic valve with normal function. Interatrial Septum * No evidence of PFO by color Doppler. Aorta * Normally sized aortic root. Pericardium * The pericardium appears normal. Left Atrium * Mildly dilated left atrium. Device lead * A device lead was visualized in the right atrium and right ventricle. Tricuspid Valve * No tricuspid stenosis. * Trace tricuspid regurgitation. * No evidence of pulmonary hypertension. * Estimated RVSP is 22 mmHg. Left Ventricle * Mildly dilated left ventricle. * Severe global and segmental left ventricular systolic dysfunction. * Indeterminate diastolic function. * LVEF 30-35%. Pulmonic Valve * No pulmonic stenosis. * No pulmonic regurgitation. Mitral Valve * Normal mitral valve function. * No mitral stenosis. * Mild mitral regurgitation. IVC * Normal IVC dimensions and inspiratory collapse. Head CT 09/18/17 11:00 IMPRESSION: No acute intracranial abnormality. Chronic small vessel ischemic disease. Frontal and temporal lobe atrophy. D/ / 09/18/2017 11:54:48 Shaunna Briones MD / leticia Interpreting Provider: Shaunna Briones MD - VTE Documentation of Mechanical Device: Graduated compression elastic hosiery Consult Discharge Plan - Plan Referrals: Sushil Robledo DO [Primary Care Provider] -
--- NOTE | 2017-09-18 14:51 | Neurology Progress Note ---
Date of Encounter: 09/18/17 Time of Encounter: 14:49 Assessment and Plan (1) TIA (transient ischemic attack) Current Visit: Yes Status: Suspected I agree that for this particular case, anticoagulation would be better than antiplatelet therapy, from a neurologic perspective. She seems at this point to be stable from a neurologic perspective. No other neurologic testing is necessary from my perspective. He may discharge her at your discretion. I will reevaluate her at your request. Qualifiers: Transient cerebral ischemia type: unspecified Qualified Code(s): G45.9 - Transient cerebral ischemic attack, unspecified Subjective Principal diagnosis: TIA, atrial fibrillation Interval history: I had the pleasure of following up with Ximena Fritz regarding symptoms of transient ischemia today. I am pleased to report she has not had any further episodes of dizziness. Although she does not feel quite back to her normal baseline, I am not able to identify any focal deficits. She is complaining of mild frontal headaches. I did review the record including the results of the echocardiogram. I am further convinced that we are likely dealing with a cardioembolic event associated with ventricular hypokinesis. Objective - Constitutional Vitals: Temp Pulse Resp BP Pulse Ox 97.7 F 78 16 106/74 97 09/18/17 11:34 09/18/17 11:34 09/18/17 11:34 09/18/17 11:34 09/18/17 11:34 - Neurological Exam Motor Examination: Present: full strength in all major muscle groups Motor examination - right side: 5/5: deltoids, biceps, triceps, wrist flexion, wrist extension, copyright clerk, hip flexors, tibialis Anterior, quadriceps, toe extension (EHL), plantarflexion Motor examination - left side: 5/5: deltoids, biceps, triceps, wrist flexion, wrist extension, hip flexors, copyright clerk, quadriceps, tibialis Anterior, toe extension (EHL), plantarflexion Sensation intact: Present: intact Mental Status Examination: Present: awake, alert, oriented to person, oriented to place, oriented to time, follows commands appropriately, answers questions appropriately, no agnosia, no aphasia, no aproxia Cranial nerve examination: Present: PERRL, EOMI, visual davison intact, corneal reflexes brisk symmetrically, sensory to face intact, mastication intact, no facial asymmetry is present, no dysarthria, hearing is intact symmetrically, soft palate elevates bilaterally upon phonation, gag reflex intact, flexes SCM and trapezius muscles symmetrically with full power, tongue protrudes midline, no atrophy or facial fasiculations present Cerebellar examination: Present: no dysmetria, performs finger to nose and heel to hanks symmetrically without ataxia, no gait ataxia, no truncal ataxia, no difficulty with rapid alternating movements - VTE Documentation of Mechanical Device: Graduated compression elastic hosiery Results - Laboratory Findings CBC and BMP: 09/18/17 03:29 09/18/17 03:29 Abnormal lab findings: Abnormal lab results RBC 5.64 M/mcL (3.82-4.97) H 09/18/17 03:29 Hct 46.2 % (35.3-44.9) H 09/18/17 03:29 MCV 81.9 fL (83.0-100.0) L 09/18/17 03:29 MCH 25.7 pg (28.0-33.3) L 09/18/17 03:29 MCHC 31.4 g/dL (31.6-35.5) L 09/18/17 03:29 RDW 14.6 % (11.5-14.5) H 09/18/17 03:29 POC Glucose 93 (58-89) H 09/17/17 10:28 Alkaline Phosphatase 32 Units/L (38-126) L 09/17/17 10:33 LDL Cholesterol, Calc 111 mg/dL (0-99) H 09/18/17 03:29 Ur Squamous Epith Cells Many per lpf (None-Few) H 09/17/17 11:57 Consult Discharge Plan - Plan Referrals: ColopySushil DO [Primary Care Provider] -
[2017-09-18] MEDS: APIXABAN 5 MG TABLET PO SCH (21:03)
[2017-09-18] MEDS ORDERED: SUMAtriptan succinate 25 MG TABLET PO ONE (22:22)
[2017-09-18] MEDS ORDERED: Ondansetron ODT 4 MG TAB.RAPDIS SL PRN (22:24)
[2017-09-19] MEDS: BuPROPion SR (12 HR) 150 MG TABLET PO SCH (08:03)
[2017-09-19] MEDS: *HR* LORazepam 1 MG TABLET PO SCH ×2 (08:03→15:14)
[2017-09-19] MEDS: APIXABAN 5 MG TABLET PO SCH (08:03)
[2017-09-19] MEDS: Metoprolol XL (24 HR) Succ 50 MG TAB.ER.24H PO SCH (08:03)
--- NOTE | 2017-09-19 10:07 | Electrocardiograph Report ---
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
[2017-09-19] MEDS: Acetaminophen 325 MG TABLET PO PRN (13:36)
[2017-09-19] MEDS ORDERED: traMADol 50 MG TABLET PO ONE (14:53)
--- NOTE | 2017-09-19 15:11 | Discharge Summary ---
Date of Encounter: 09/19/17 Time of Encounter: 10:15 - Discharge Diagnosis (1) TIA (transient ischemic attack) Priority: Primary Status: Suspected Comments: Mrs. Fritz is a 66-year-old female past medical history of cardiomyopathy, hypothyroidism, chronic systolic heart failure, and paroxysmal A. fib. Patient presented with weakness, slurred speech, leaning to the right when she ambulates and falls on day of presentation. Duration of symptoms were 1-2 days. Patient had 2 falls without any trauma. Head CT negative. Concern for CVA but unable to have MRI secondary to pacemaker. Repeat head CT 09/18/17 nonacute. TTE with EF 30-35%, no evidence of PFO or cardiac source of emboli. Evaluated by Neurology who suspects TIA possibly secondary to small cardioembolic embolus and recommended anticoagulation. She will be sent home with prescription for Eliquis. LDL 111, add statin. No further neurological testing required. Neurology has signed off. Continue Eliquis, statin Qualifiers: Transient cerebral ischemia type: unspecified Qualified Code(s): G45.9 - Transient cerebral ischemic attack, unspecified (2) Paroxysmal atrial fibrillation Priority: Secondary Status: Chronic Comments: Per patient history. She reports being on anticoagulation in the past which was stopped due to GI bleed. She was unsure if she was taking it for A. fib. Now she has suspected TIA due to cardioembolic source as noted above. (3) Hypothyroid Priority: Secondary Status: Chronic Comments: TSH normal, continue levothyroxine. Qualifiers: Hypothyroidism type: unspecified Qualified Code(s): E03.9 - Hypothyroidism , unspecified (4) DVT prophylaxis Priority: Secondary Status: Acute Comments: Pt has been started on Eliquis. (5) Chronic systolic (congestive) heart failure Priority: Secondary Status: Acute Comments: per pt hx. Follows with cardiology in [place]. TTE with EF 30-35%, unknown chronicity. Evaluated by cardiology who noted likely chronic as she has ICD. Need to obtain previous records to confirm. If EF is newly reduced (if >40% before) then will need [facility] to rule out ischemic component. 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 Patient will be discharged with beta melonie and wendy, as well as anticoagulation Continue BB, add WENDY. - Discharge Medications Prescriptions: Apixaban [Eliquis] 5 mg PO BID #60 tablet Atorvastatin [Lipitor] 40 mg PO HS #30 tablet Lisinopril [Zestril] 2.5 mg PO DAILY #30 tablet Home Medications: BuPROPion SR (12 HR) [Wellbutrin SR] 150 mg PO DAILY 09/17/17 [History] Citalopram Hydrobromide [Citalopram HBr] 20 mg PO DAILY 09/17/17 [History] LORazepam [Ativan] 1 mg PO TID 09/17/17 [History] Levothyroxine [Synthroid] 50 mcg PO DAILY 09/17/17 [History] Metoprolol Succinate 200 mg PO DAILY 09/17/17 [History] Omeprazole [PriLOSEC] 20 mg PO DAILY 09/17/17 [History] Apixaban [Eliquis] 5 mg PO BID #60 tablet 09/19/17 [Rx] Atorvastatin [Lipitor] 40 mg PO HS #30 tablet 09/19/17 [Rx] Lisinopril [Zestril] 2.5 mg PO DAILY #30 tablet 09/19/17 [Rx] Allergies/Adverse Reactions: 3 Allergy/AdvReac Type Severity Reaction Status Date / Time No Known Allergies Allergy Verified 09/17/17 12:33 Procedures/tests Complete & Pending: Procedures Performed prior 72 hours Category Date Time Status CT head/brain wo con [CT] Routine Cat Scan 09/18/17 11:00 Completed EV carotid duplex imaging BI Routine Y 09/17/17 14:48 Completed EV echocardiogram Routine Y 09/17/17 13:36 Completed Date of admission: 09/17/17 12:45 Primary care physician: Sushil Cavazos Colopy Consults: 09/17/17 13:33 Consult to Physical Therapy [CONS] Routine Comment: Evaluate, develop and implement POC Reason for Consult: weakness,fall 09/17/17 13:34 Consult to Occupational Therapy [CONS] Routine Comment: Evaluate, develop and implement POC Reason for Consult: weakness falls 09/17/17 14:54 Consult to Neurology [CONS] Routine Consulting Provider: Neurology [facility] Reason for Consult: weakness TIA Time Notified: 14:54 Call Completed: Yes 09/17/17 14:55 Consult to Cardiology [CONS] Routine Comment: Consulting Provider: Cardiology Samara Reason for Consult: Proximal atrial fibrillation- is not anticoagulated Time Notified: 14:57 Call Completed: Yes Discharging clinician: Rin Connor Anticipated date of discharge: 09/19/17 - Patient Status Disposition: Home, Self-Care Condition: Good Functional capacity at discharge: independent ambulation Overall status at discharge: patient is progressing back to baseline - Discharge Instructions Follow Up With: Sushil Robledo DO [Primary Care Provider] - Additional Instructions: Follow-up with your primary care provider the next 7-10 days for follow-up visit. Resume your normal home medications. Take her new medications as directed. Return to the emergency department immediately if her symptoms return or worsen , or for any other problems or concerns. Return to normal diet and activities as tolerated. - Diet and Activity Activity: increase activity as tolerated Diet: advance to your usual diet Interval History: Please see assessment and plan for hospital course. Hospital course: Ms. Fritz is a 66 year old female - Time Spent with Patient Total time spent providing and/or coordinating discharge services: - Constitutional Vitals: Temp Pulse Resp BP Pulse Ox 97.6 F 72 16 101/71 96 09/19/17 11:00 09/19/17 11:00 09/19/17 11:00 09/19/17 11:00 09/19/17 11:00 General appearance: Present: A&O X 3, morbidly obese, pleasant, no acute distress, answers questions appropriately - Head Head exam: Present: atraumatic, normal inspection, normocephalic - Eye Eye exam: Present: normal appearance, conjuntiva pink, sclera anicteric - Neck Neck exam general surgery: Present: normal inspection, supple, trachea midline. Absent: lymphadenopathy, tenderness - Respiratory Respiratory exam: Present: CTAB. Absent: accessory muscle use, rales, rhonchi, wheezes - Cardiovascular Cardiovascular exam: Present: RRR, +S1, +S2. Absent: diastolic murmur, gallop, rubs, systolic murmur - GI/Abdominal GI/Abdominal exam: Present: normal bowel sounds, soft. Absent: distended, tenderness - Extremities Exam Extremities exam: Present: normal inspection, warm, radial pulses palpable and symmetrical. Absent: calf tenderness, cyanotic, pedal edema, tenderness - Neurological Exam Neurological exam: Present: CN II-XII intact, oriented X3, no focal deficits, strengths equal and symetr throughout. Absent: facial droop, speech deficit - Skin Skin exam: Present: dry, intact, normal color, warm. Absent: rash - VTE Documentation of Mechanical Device: Graduated compression elastic hosiery
[2017-09-19 15:17] VITALS: BP 94/62
[2017-09-19] MEDS ORDERED: FLUARIX QUAD 2017-18 36MOS UP/PF 0.5 ML SYRINGE IM ONE (15:57)
== END 2017-09-19 16:15 | disposition home or self-care (01) ==
LOC: EMEROO 09:52 → 3BNU 09:52
PROVIDERS: ADMIT Registered Nurse; ATTEND Registered Nurse

== ENCOUNTER 2018-03-16 19:48 | Inpatient (IN) ==
[2018-03-16] MEDS ORDERED: *HR* FentaNYL (PF) 100 MCG/2 ML VIAL IVP ONE (20:21)
[2018-03-16] MEDS ORDERED: Ondansetron 4 MG/2 ML VIAL IVP ONE (20:21)
[2018-03-16] MEDS ORDERED: ceFAZolin 2,000 MG in Water for inj. (sterile) 20 ML 10 ML IVP ONE (20:23)
--- NOTE | 2018-03-16 20:25 | Emergency Department Note ---
Disposition Clinical Impression: Elbow dislocation Qualifiers: Encounter type: initial encounter Laterality: right Qualified Code(s): S53.104A - Unspecified dislocation of right ulnohumeral joint, initial encounter Elbow fracture, right Qualifiers: Encounter type: initial encounter Fracture type: closed Qualified Code(s): S42.401A - Unspecified fracture of lower end of right humerus, initial encounter for closed fracture Radius and ulna distal fracture Qualifiers: Encounter type: initial encounter Fracture type: open Open fracture type: open type I or II Laterality: right Qualified Code(s): S52.501B - Unspecified fracture of the lower end of right radius, initial encounter for open fracture type I or II Disposition: Admitted As Inpatient Condition: Good Referrals: Sushil Robledo DO [Primary Care Provider] - Forms: ED Satisfaction Letter Time of Disposition: 23:02 General Adult HPI - General Chief complaint: ED Extremity Injury, Upper Stated complaint: fall right arm injury Time Seen by Provider: 03/16/18 19:49 Source: EMS Limitations: no limitations Nursing Notes Reviewed: Yes Vital Signs Reviewed: Yes - History of Present Illness HPI Narrative: Patient is a 67-year-old female that presents the emergency department after a fall. She states that she was going down her stairs and she slipped and fell forward. She states that she fell down the majority of the 14 steps in her home. Patient denies hitting her head or any loss of consciousness. Patient states that she feels like her right arm is broken and there was significant amount of blood that was at the scene of the incident. Patient also reports that she skinned up her right knee and it is mildly painful. Patient states that she is still able to move all fingers but is unable to move her right elbow. Patient reports a deformity to the right arm. Patient denies any further injuries. Patient denies any back or neck pain at this time. Pain Scale: 9 - Related Data Home Medications Medication Instructions Recorded Confirmed BuPROPion SR (12 HR) [Wellbutrin 150 mg PO DAILY 09/17/17 09/17/17 SR] Citalopram Hydrobromide 20 mg PO DAILY 09/17/17 09/17/17 [Citalopram HBr] LORazepam [Ativan] 1 mg PO TID 09/17/17 09/17/17 Levothyroxine [Synthroid] 50 mcg PO DAILY 09/17/17 09/17/17 Metoprolol Succinate 200 mg PO DAILY 09/17/17 09/17/17 Omeprazole [PriLOSEC] 20 mg PO DAILY 09/17/17 09/17/17 Previous Rx's Medication Instructions Recorded Apixaban [Eliquis] 5 mg PO BID #60 tablet 09/19/17 Atorvastatin [Lipitor] 40 mg PO HS #30 tablet 09/19/17 Lisinopril [Zestril] 2.5 mg PO DAILY #30 tablet 09/19/17 Amoxicillin 500 mg PO TID #30 tablet 10/21/17 Allergies Allergy/AdvReac Type Severity Reaction Status Date / Time No Known Allergies Allergy Verified 09/17/17 12:33 All systems ED: reviewed and negative except as stated. Cardiovascular: Denies: chest pain Respiratory: Denies: dyspnea Gastrointestinal: Reports: nausea. Denies: abdominal pain, vomiting Musculoskeletal: Reports: other (right arm pain). Denies: back pain, neck pain Past Medical History - Past Medical History Medical history: Reports: atrial fibrillation, CHF, coronary artery disease, thyroid disease, TIA, other Psychiatric history: Reports: anxiety, depression WHEEL WORKER history: Reports: no WHEEL WORKER history - Social History Smoking Status: Never smoker Smokeless Tobacco Status: No Alcohol use: Reports: none Drug use: Reports: none Physical Exam - General Limitations: no limitations General appearance: alert, in distress, obese - Head Head exam: atraumatic, normocephalic - Eye Eye exam: Present: normal appearance, EOMI - Neck Neck exam: Present: normal inspection, full ROM, trachea midline - Respiratory Respiratory exam: Present: normal lung sounds bilaterally. Absent: respiratory distress, wheezes - Cardiovascular Cardiovascular exam: Present: regular rate, normal rhythm, normal heart sounds, +S1, +S2 - Abdominal Exam Abdominal exam: Present: soft, Non-Tender, normal bowel sounds - Expanded Upper Extremity Exam Shoulder exam: Present: normal inspection, full ROM. Absent: tenderness Arm exam: Present: normal inspection, full ROM. Absent: tenderness Elbow exam: Present: tenderness (to the right elbow). Absent: normal inspection , full ROM Forearm/Wrist exam: Present: tenderness. Absent: normal inspection, full ROM Hand exam: Present: normal inspection, full ROM. Absent: tenderness Vascular exam: Normal: capillary refill, radial pulse, ulnar pulse - Expanded Lower Extremity Exam Hip/Pelvis exam: Present: normal inspection, full ROM. Absent: tenderness Upper leg exam: Present: normal inspection, full ROM. Absent: tenderness Lower leg exam: Present: tenderness (to the right knee), abrasion Ankle exam: Present: normal inspection, full ROM. Absent: tenderness Foot/toe exam: Present: normal inspection, full ROM. Absent: tenderness - Back Exam Back exam: Present: normal inspection, full ROM. Absent: tenderness - Neurological Exam Neurological exam: Present: alert, oriented X3 - Psychiatric Psychiatric exam: Present: normal affect - Skin Skin exam: Present: warm, dry, other (Puncture wound to the anterior aspect of the right wrist.) Course - Consultations Consultation #1: Called and spoke with Dr. Washington and he recommended that the patient be placed in a posterior arm splint and the patient be admitted to the hospital. We will admit to medicine with a orthopedic consult. Time: 22:43 Vital Signs Temperature 98.2 F 03/16/18 19:54 Pulse Rate 81 03/16/18 19:54 Respiratory Rate 18 03/16/18 19:54 Blood Pressure 130/97 03/16/18 19:54 O2 Sat by Pulse Oximetry 94 03/16/18 19:54 Temperature 98.2 F 03/16/18 19:54 Pulse Rate 82 03/16/18 20:13 Respiratory Rate 18 03/16/18 19:54 Blood Pressure 130/97 03/16/18 19:54 O2 Sat by Pulse Oximetry 94 03/16/18 19:54 Oxygen Delivery Oxygen Delivery Room Air Procedures - Orthopedic Joint Reduction Joint #1 Consent Obtained: verbal consent Side: right Joint Reduction Location: elbow ASA Classification: CLASS III-Severe systemic disease Analgesia: other (Nubain and fentanyl ) Technique used: traction/counter-traction Post-reduction neuro exam: intact Post-reduction vascular: intact Post Reduction X-Ray Obtained: Yes Post Reduction X-Ray Results: not reduced Splint Applied: Yes Patient Tolerated Procedure: well Medical Decision Making - [facility] Narrative Medical decision making narrative: Due to the patient presenting to the emergency department after a fall with what appears to be a fractured right arm that is open on the anterior aspect of her right wrist the patient will receive analgesics and antibiotics as well as antibiotics here in the emergency department. We will obtain x-ray imaging of the right humerus, elbow, forearm wrist and hand to identify possible fracture. Patient has fractures to the distal radius and ulna. Patient also was noted to have a dislocated right elbow and an elbow fracture. Multiple attempts were performed to try and reduce the elbow dislocation but it was unsuccessful. I called and spoke with Dr. Washington the orthopedic surgeon he recommended placing the patient in a posterior arm splint and admitting to the hospital and he will see her tomorrow. Patient was neurovascularly intact prior to the reduction attempts and after the attempts to reduce the elbow. Patient will need to be admitted to the hospital for further evaluation and management with an orthopedic consultation. Called and spoke with the admitting hospitalist and he has accepted the patient to their service. The patient be admitted to the hospital for further evaluation and management. He did request that basic laboratory testing be obtained this will be done at his request. - Radiology Data Radiology results reviewed: Yes I reviewed the patient's radiology results. Forearm X-Ray 03/16/18 20:16 IMPRESSION: 1. Severely comminuted displaced distal radial and ulnar fractures. 2. Right elbow fracture-dislocation. D/ / Low Kennedy MD / Low Kennedy MD Interpreting Provider: Low Kennedy MD Humerus X-Ray 03/16/18 20:16 IMPRESSION: Elbow fracture dislocation. D/ / oLw Kennedy MD / Low Kennedy MD Interpreting Provider: Low Kennedy MD Knee X-Ray 03/16/18 20:25 IMPRESSION: Negative for fracture. D/ / Low Kennedy MD / Low Kennedy MD Interpreting Provider: Low Kennedy MD Elbow X-Ray 03/16/18 21:53 IMPRESSION: Persistent right elbow dislocation. D/ / Maximo Scanlon MD / Maximo Scanlon MD Interpreting Provider: Maximo Scanlon MD
[2018-03-16] MEDS ORDERED: *HR* Nalbuphine 10 MG/ML AMPUL IVP ONE (21:19)
--- NOTE | 2018-03-16 23:02 | Emergency Department Note ---
START Narrative - START START: I examined this patient and my medical decision-making was reviewed with the Resident Physician. I agree with the documented findings, disposition and treatment plan as described except to the extent set forth below. 67 showed female presented to the emergency room from a fall down multiple stairs. She injured her right elbow and right wrist. She was brought to the ER via ambulance. She denies any head or neck injury. She is also having some right knee pain. Her films showed a fracture dislocation of the right elbow as well as multiple fractures throughout the distal radius and on. We consulted with Dr. Washington with orthopedics. He took 3 of us in the emergency room to try to relocate her right elbow. We were unable to get this elbow and good approximation anatomical position after multiple attempts to reduce this fracture dislocation. She remained neurovascularly intact. She had no signs of any median nerve problems. Patient does have an open fracture at the distal wrist. She was given Ancef. Patient will be admitted to the hospitalist and consult orthopedics. Critical care time of 35 minutes spent in medical management of complicated fracture dislocation of the right elbow and right wrist.
--- NOTE | 2018-03-16 23:23 | Internal Med History&Physical ---
Date of Encounter: 03/16/18 Time of Encounter: 23:19 Internal Medicine - H&P: HPI Chief complaint: fall Admitted From: Emergency Dept Plans for Post Hospital Care: Home History of present illness: Ms. Fritz is a 67 year old female nonischemic cardiomyopathy, hypothyroidism , chronic systolic heart failure s/p AICD, and paroxysmal A. fib not on anticoag due to GI bleeding who presents after a fall. She slipped or missed a step and fell forward going down 14 steps at home. No LOC. She fell on her right upper extremity and came to the ED and was found to have an acute fracture dislocation of the elbow joint. Also found to have distal ulnar and radial comminuted fractures on the right Patient also reports that she skinned up her right knee and it is mildly painful. Xray of that was negative. She is still able to movers her extremities. Reduction was tried in the ED by multiple providers but failed. She is in pain and has multiple bruises mainly on the right knee which is swollen to about the size of a football. Denies fever, chills, nausea, vomiting, chest pain, shortness of breath, diarrhea, constipation, urinary symptoms, or neurological symptoms. The patient is fairly functional at home and has no issues. She is not in heart failure. She is usually able to get up and down the stairs at her townhouse with no issues. Past Med Surg Social Fam HX - Past Medical History Medical history: atrial fibrillation, CHF, coronary artery disease, thyroid disease, TIA, other Psychiatric history: anxiety, depression - Social History Smoking Status: Never smoker Smokeless Tobacco Status: No Alcohol use: none Drug use: none - Family History Mother Living Status: Hx Family Respiratory Disorders: Yes (PE) Hx Family Neurologic Disorders: Yes (TIAs) Father Hx Family Neuromuscular Disorders: Yes (parkinsons) Internal Medicine - H&P: Meds BuPROPion SR (12 HR) [Wellbutrin SR] 150 mg PO DAILY 09/17/17 [History] Citalopram Hydrobromide [Citalopram HBr] 20 mg PO DAILY 09/17/17 [History] LORazepam [Ativan] 1 mg PO TID 09/17/17 [History] Levothyroxine [Synthroid] 50 mcg PO DAILY 09/17/17 [History] Metoprolol Succinate 200 mg PO DAILY 09/17/17 [History] Omeprazole [PriLOSEC] 20 mg PO DAILY 09/17/17 [History] Apixaban [Eliquis] 5 mg PO BID #60 tablet 09/19/17 [Rx] Atorvastatin [Lipitor] 40 mg PO HS #30 tablet 09/19/17 [Rx] Lisinopril [Zestril] 2.5 mg PO DAILY #30 tablet 09/19/17 [Rx] Amoxicillin 500 mg PO TID #30 tablet 10/21/17 [Rx] 3 Allergy/AdvReac Type Severity Reaction Status Date / Time No Known Allergies Allergy Verified 09/17/17 12:33 All Systems PM: A 10-system review of systems was performed and is negative for pertinent findings except as documented above in the HPI. Review of systems: All systems reviewed are negative except as mentioned above - Constitutional Vitals: Temp Pulse Resp BP Pulse Ox 98.2 F 82 18 130/97 94 03/16/18 19:54 03/16/18 20:13 03/16/18 19:54 03/16/18 19:54 03/16/18 19:54 Exam: GEN: NAD HEENT: AT, NC, No cyanosis, oral mucosa is moist, No JVD Lymphatics: No lymphadenoapthy Eyes: Extrocular muscles intact, anicteric CVS:RRR. S1, S2, No m/r/g RESP: CTAB ABD: Soft, NT, ND, +BS EXT: Right knee is swollen but patient has complete range of motion. Is an area of ecchymosis laterally. Right upper extremity is wrapped, No rashes, 2+ DP NEURO: Nonfocal, CN II-XII intact, No focal motor or sensory deficits Psych: Cooperative, Not anxious or depressed Internal Med - H&P Results - Impressions ITS Impressions Forearm X-Ray 03/16/18 20:16 IMPRESSION: 1. Severely comminuted displaced distal radial and ulnar fractures. 2. Right elbow fracture-dislocation. D/ / Low Kennedy MD / Low Kennedy MD Interpreting Provider: Low Kennedy MD Humerus X-Ray 03/16/18 20:16 IMPRESSION: Elbow fracture dislocation. D/ / Low Kennedy MD / Low Kennedy MD Interpreting Provider: Low Kennedy MD Knee X-Ray 03/16/18 20:25 IMPRESSION: Negative for fracture. D/ / Low Kennedy MD / Low Kennedy MD Interpreting Provider: Low Kennedy MD Elbow X-Ray 03/16/18 21:53 IMPRESSION: Persistent right elbow dislocation. D/ / Maximo Scanlon MD / Maximo Scanlon MD Interpreting Provider: Maximo Scanlon MD - Assessment and plan (1) Elbow dislocation Current Visit: Yes Status: Acute Assessment and plan: Pain control throughout the night. To be seen by orthopedics tomorrow. Nothing by mouth after midnight. Reduction failed in the ED. Qualifiers: Encounter type: initial encounter Laterality: right Qualified Code(s): S53.104A - Unspecified dislocation of right ulnohumeral joint, initial encounter (2) Radius and ulna distal fracture Current Visit: Yes Status: Acute Assessment and plan: Plan is as above. Nothing by mouth after midnight. EKG for preop purposes. The patient will be going to the OR and no further cardiac workup is needed. The patient is not in heart failure. She denies chest pain. She recently had a left heart catheterization she tells me at [place] which was negative however she does have an EF of 35%. The patient would be moderate cardiac risk for a intermediate risk operation. Qualifiers: Encounter type: initial encounter Fracture type: open Open fracture type : open type I or II Laterality: right Qualified Code(s): S52.501B - Unspecified fracture of the lower end of right radius, initial encounter for open fracture type I or II; S52.601B - Unspecified fracture of lower end of right ulna, initial encounter for open fracture type I or II (3) Cardiomyopathy Current Visit: No Status: Chronic Assessment and plan: Nonischemic cardiomyopathy. Patient has a known EF of 35%. She has no signs of heart failure. Continue cardiac meds. Qualifiers: Cardiomyopathy type: unspecified Qualified Code(s): I42.9 - Cardiomyopathy , unspecified (4) Hypothyroid Current Visit: No Status: Chronic Assessment and plan: Continue home Synthroid. Qualifiers: Hypothyroidism type: unspecified Qualified Code(s): E03.9 - Hypothyroidism , unspecified (5) Paroxysmal atrial fibrillation Current Visit: No Status: Chronic Assessment and plan: Rate control. Patient has AICD. Not on anticoagulation due to history of bleed. Continue cardiac meds. (6) DVT prophylaxis Current Visit: No Status: Acute Assessment and plan: Heparin subcutaneous - Time Spent With Patient Total time spent is greater than 50% in coordination of care (as documented) at patient's floor/unit and/or counseling patient:
[2018-03-16] MEDS ORDERED: Naloxone 0.4 MG/ML INJ IVP PRN (23:24)
[2018-03-16] MEDS ORDERED: Acetaminophen 325 MG TABLET PO PRN (23:24)
[2018-03-16] MEDS ORDERED: Ondansetron 4 MG/2 ML VIAL IVP PRN (23:24)
[2018-03-17 00:59] LABS: Basophils % 0.2 %; Eosinophils % 0.1 %; Hematocrit 44.9 % (35.3-44.9); Hemoglobin 13.9 g/dL (11.5-15.4); Immature Granulocytes % 0.6 % (0-4); Lymphocytes # 1.3 K/mcL (0.6-4.6); Lymphocytes % 7.2 %; Mean Corpuscular Hemoglobin 25.1 pg (28.0-33.3); Mean Platelet Volume 9.8 fL (9.4-12.4); Monocytes # 1.6 K/mcL (0.0-1.3); Neutrophils # 14.5 K/mcL (1.6-8.9); Platelet Count 279 K/mcL (140-400); Red Blood Count 5.54 M/mcL (3.82-4.97); Red Cell Distribution Width 14.6 % (11.5-14.5); Segmented Neutrophils % 82.9 %
[2018-03-17] MEDS: *HR* HYDROcodone/Acet 5/325 mg TABLET PO PRN ×2 (01:02→07:14)
[2018-03-17 01:04] LABS: INR 1.1; Prothrombin Time 11.9 Seconds (9.4-12.1)
[2018-03-17 01:07] LABS: Activated Partial Thrombo Time 27.2 Seconds (26.0-36.0)
[2018-03-17 01:14] LABS: BUN/Creatinine Ratio 38 (6-26); Blood Urea Nitrogen 27 mg/dL (8-23); Carbon Dioxide 21 mEq/L (23-29); Chloride 112 mEq/L (98-107); Glucose 136 mg/dL (70-105); Magnesium 1.9 mg/dL (1.6-2.6); Osmolality,Calculated 299 (280-300); Potassium 4.3 mEq/L (3.5-5.1); Sodium 141 mEq/L (136-145); eGFR For African Americans > 60 (> 60); eGFR For Non-African Americans > 60 (> 60)
[2018-03-17] MEDS: *HR* Heparin 5,000 UNIT/ML VIAL SQ SCH ×3 (05:16→23:57)
--- NOTE | 2018-03-17 09:37 | Electrocardiograph Report ---
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
--- NOTE | 2018-03-17 10:52 | Orthopedic Consult Note ---
Date of Encounter: 03/17/18 Time of Encounter: 09:30 Assessment and Plan (1) Radius and ulna distal fracture Current Visit: Yes Status: Acute Plan for right distal radius and distal ulnar ORIF today by Dr. Meza. Discussed the procedure with the patient as well as r/b/a and she expressed understanding and all questions answered. Consent signed and placed in chart. Per hospitalist note she is cleared for surgery with "moderate cardiac risk for a intermediate risk operation." I did make Dr. Meza aware that this is an open fracture. I did not remove the splint on exam but she did have visible bleeding through dressings on volar wrist side which will be reinforced by nurse. ER documentation unclear type of wound to wrist. Continue to elevate LUE. ROM of fingers as tolerated. Splint to be left in place until surgery today. NPO now. Pain control per hospitalist. Qualifiers: Encounter type: initial encounter Fracture type: open Open fracture type : open type I or II Laterality: right Qualified Code(s): S52.501B - Unspecified fracture of the lower end of right radius, initial encounter for open fracture type I or II; S52.601B - Unspecified fracture of lower end of right ulna, initial encounter for open fracture type I or II (2) Elbow dislocation Current Visit: Yes Status: Acute Plan for right elbow open reduction, possible internal joint stabilization today with the wrist ORIF. Qualifiers: Encounter type: initial encounter Laterality: right Qualified Code(s): S53.104A - Unspecified dislocation of right ulnohumeral joint, initial encounter (3) Right knee pain Current Visit: Yes Status: Acute Xrays showed no fracture. Continue with conservative treatment. Ice and elevate, Motion and weight bearing as tolerated. Qualifiers: Chronicity: acute Qualified Code(s): M25.561 - Pain in right knee History of Present Illness Chief complaint: right elbow and wrist pain HPI: Ms. Fritz is a 67 year old female who presented to the ER last night after she slipped and fell down a flight of stairs in her home. She had instant pain to right elbow and wrist and noted a pool of blood on the floor. She also noted right knee pain as well. She denies hitting her head or LOC. Denies any numbness but has trouble with moving fingers due to pain in wrist. Pain to wrist and elbow is sharp, constant and she feels a stabbing pain in wrist if she tries to move fingers. Denies shoulder pain but describes muscle tightness to upper arm. Denies any neck pain, chest pain, SOB, fevers. She is right hand dominant. Past Med Surg Social Fam HX - Past Medical History Medical history: atrial fibrillation, CHF, coronary artery disease, thyroid disease, TIA, other Psychiatric history: anxiety, depression - Past Surgical History Surgical History: appendectomy, hysterectomy - Social History Smoking Status: Never smoker Smokeless Tobacco Status: No Alcohol use: none Drug use: none - Family History Mother Adopted: [place]: Gena Stoner Age: 88 Family Member Ethnicity: Non- Living Status: Age at : 88 Cause of : Alzheimer's disease Hx Family Cardiac Disorders: Yes (Mitral valve prolapse, blood clots) Hx Family Respiratory Disorders: Yes (PE) Hx Family Neurologic Disorders: Yes (Alzheimer's disease) Father Adopted: [place]: Jorge Stoner Age: 80 Family Member Ethnicity: Non- Living Status: Age at : 80 Cause of : Pneumonia Hx Family Neuromuscular Disorders: Yes (parkinsons) Hx Family Neurologic Disorders: Yes (Alzheimer's disease) Medications and Allergies BuPROPion SR (12 HR) [Wellbutrin SR] 150 mg PO DAILY 09/17/17 [History] Citalopram Hydrobromide [Citalopram HBr] 20 mg PO DAILY 09/17/17 [History] LORazepam [Ativan] 1 mg PO TID 09/17/17 [History] Levothyroxine [Synthroid] 50 mcg PO DAILY 09/17/17 [History] Metoprolol Succinate 200 mg PO DAILY 09/17/17 [History] Omeprazole [PriLOSEC] 20 mg PO DAILY 09/17/17 [History] Aspirin [Lo-Dose Aspirin EC] 81 mg PO DAILY 03/17/18 [History] Losartan Potassium [Cozaar] 50 mg PO DAILY 03/17/18 [History] 3 Allergy/AdvReac Type Severity Reaction Status Date / Time No Known Allergies Allergy Verified 09/17/17 12:33 All Systems Reviewed: The remainder of the systems were reviewed and are negative - Constitutional Constitutional: as per HPI - Cardiovascular Cardiovascular: as per HPI - Respiratory Respiratory: as per HPI - Musculoskeletal Musculoskeletal: as per HPI Physical Exam - Constitutional Vitals: Temp Pulse Resp BP Pulse Ox 98.6 F 76 18 100/66 94 03/17/18 06:57 03/17/18 06:57 03/17/18 06:57 03/17/18 06:57 03/17/18 06:57 - Wrist & Hand right Wrist pain modifiers: with motion (posterior splint intact to RUE. Area of blood noted to volar wrist, ROM fingers restricted secondary to pain in wrist. slightly decreased cap refill, otherwise grossly NV intact) - Knee right Appearance: ecchymosis (moderate ecchymosis to lateral knee. Smal superficial abrasion to anterior and lateral knee. Full ROM, good strength and stability. No calf tenderness. good dorsiflexion of foot. grossly NV intact.) Results - Labs Result Diagrams: 03/17/18 00:46 03/17/18 00:46 Labs: Abnormal lab results WBC 17.5 K/mcL (4.3-11.1) H 03/17/18 00:46 RBC 5.54 M/mcL (3.82-4.97) H 03/17/18 00:46 MCV 81.0 fL (83.0-100.0) L 03/17/18 00:46 MCH 25.1 pg (28.0-33.3) L 03/17/18 00:46 MCHC 31.0 g/dL (31.6-35.5) L 03/17/18 00:46 RDW 14.6 % (11.5-14.5) H 03/17/18 00:46 Neutrophils # 14.5 K/mcL (1.6-8.9) H 03/17/18 00:46 Monocytes # 1.6 K/mcL (0.0-1.3) H 03/17/18 00:46 Chloride 112 mEq/L (98-107) H 03/17/18 00:46 Carbon Dioxide 21 mEq/L (23-29) L 03/17/18 00:46 BUN 27 mg/dL (8-23) H 03/17/18 00:46 BUN/Creatinine Ratio 38 (6-26) H 03/17/18 00:46 Glucose 136 mg/dL (70-105) H 03/17/18 00:46 H & H 03/17/18 Range/Units 00:46 Hgb 13.9 (11.5-15.4) g/dL Hct 44.9 (35.3-44.9) % All other labs normal. - Diagnostic results Elbow x-ray: report reviewed, image reviewed Wrist/Hand x-ray: report reviewed, image reviewed Knee x-ray: report reviewed, image reviewed Consult Discharge Plan - Plan Referrals: Colopy,Sushil Cavazos DO [Primary Care Provider] - - Attending Attestation Case and plan of care discussed with supervising physician who was available for all aspects of care.
[2018-03-17] MEDS ORDERED: *HR* OxyCODONE/APAP 5/325 TABLET PO PRN (12:21)
[2018-03-17] MEDS ORDERED: Ketorolac 30 MG/ML VIAL IVP PRN (13:21)
[2018-03-17] MEDS ORDERED: Metoprolol XL (24 HR) Succ 50 MG TAB.ER.24H PO SCH (13:30)
[2018-03-17] MEDS: *HR* LORazepam 1 MG TABLET PO SCH ×2 (13:45→23:58)
--- NOTE | 2018-03-17 15:57 | Internal Med Progress Note ---
Date of Encounter: 03/17/18 Time of Encounter: 13:00 - Assessment and plan (1) Radius and ulna distal fracture Current Visit: Yes Status: Acute Assessment and plan: Orthopedics consulted with recommendation for right distal radius and distal ulnar ORIF this afternoon Pain control with Toradol as needed Qualifiers: Encounter type: initial encounter Fracture type: open Open fracture type : open type I or II Laterality: right Qualified Code(s): S52.501B - Unspecified fracture of the lower end of right radius, initial encounter for open fracture type I or II; S52.601B - Unspecified fracture of lower end of right ulna, initial encounter for open fracture type I or II (2) Elbow dislocation Current Visit: Yes Status: Acute Assessment and plan: Orthopedic recommendations for right elbow open reduction, possible internal joint stabilization today with the wrist ORIF. Qualifiers: Encounter type: initial encounter Laterality: right Qualified Code(s): S53.104A - Unspecified dislocation of right ulnohumeral joint, initial encounter (3) Paroxysmal atrial fibrillation Current Visit: No Status: Chronic Assessment and plan: Rate control; patient has AICD. Not on anticoagulation due to history of bleed. Continue home medications (4) Cardiomyopathy Current Visit: No Status: Chronic Assessment and plan: Nonischemic cardiomyopathy;EF of 35%. No evidence of acute heart failure Continue cardiac meds. Qualifiers: Cardiomyopathy type: unspecified Qualified Code(s): I42.9 - Cardiomyopathy , unspecified (5) Hypothyroid Current Visit: No Status: Chronic Assessment and plan: Continue home Synthroid. Qualifiers: Hypothyroidism type: unspecified Qualified Code(s): E03.9 - Hypothyroidism , unspecified (6) DVT prophylaxis Current Visit: No Status: Acute Assessment and plan: Subcutaneous heparin - Time Spent With Patient Total time spent is greater than 50% in coordination of care (as documented) at patient's floor/unit and/or counseling patient: - Subjective Interval history: Patient resting comfortably but still with right arm pain secondary to radius/ ulnar fracture Patient is planned for OR today per orthopedics - Constitutional Vitals: Temp Pulse Resp BP Pulse Ox 97.9 F 76 16 90/59 93 03/17/18 14:43 03/17/18 14:43 03/17/18 14:43 03/17/18 14:43 03/17/18 14:43 General appearance: Present: A&O X 3, no acute distress - Cardiovascular Cardiovascular exam: Present: RRR, +S1, +S2. Absent: diastolic murmur, gallop, rubs, systolic murmur - Psychiatric Psychiatric exam: Present: normal mood - Skin Skin exam: Present: normal color Internal Medicine: Result - Labs CBC & Chem 7: 03/17/18 00:46 03/17/18 00:46 Labs: Short CBC 03/17/18 Range/Units 00:46 WBC 17.5 H (4.3-11.1) K/mcL Hgb 13.9 (11.5-15.4) g/dL Hct 44.9 (35.3-44.9) % Plt Count 279 (140-400) K/mcL Neutrophils # 14.5 H (1.6-8.9) K/mcL BMP 03/17/18 00:46 Sodium 141 Potassium 4.3 Chloride 112 H Carbon Dioxide 21 L BUN 27 H Creatinine 0.71 Glucose 136 H Calcium 9.0 - ABG Interpretation ABG results: PT/INR, D-dimer PT 11.9 Seconds (9.4-12.1) 03/17/18 00:46 Consult Discharge Plan - Plan Referrals: Sushil Robledo DO [Primary Care Provider] -
--- NOTE | 2018-03-17 16:55 | Anesthesia Evaluation PreOp ---
Date of Encounter: 03/17/18 Time of Encounter: 16:53 - Past History Planned Operation: ORIF R. Wrist and R. Elbow Cardiac History: CHF, Arrhythmia (AF), Pacemaker/ICD (AICD implanted 2007), Other (Cardiomyopathy) Pulmonary History: Denies Any Significant HX [employer] History: TIA, Other (anxiety/Depression) Other Medical History: Thyroid (Hypo), GERD, Other (Hx GI bleed) Anesthesia History: Past Anesthesia (appy, DIVYA, AICD) : No Alcohol Use: none Drug use: none Medications and Allergies BuPROPion SR (12 HR) [Wellbutrin SR] 150 mg PO DAILY 09/17/17 [History] Citalopram Hydrobromide [Citalopram HBr] 20 mg PO DAILY 09/17/17 [History] LORazepam [Ativan] 1 mg PO TID 09/17/17 [History] Levothyroxine [Synthroid] 50 mcg PO DAILY 09/17/17 [History] Metoprolol Succinate 200 mg PO DAILY 09/17/17 [History] Omeprazole [PriLOSEC] 20 mg PO DAILY 09/17/17 [History] Aspirin [Lo-Dose Aspirin EC] 81 mg PO DAILY 03/17/18 [History] Losartan Potassium [Cozaar] 50 mg PO DAILY 03/17/18 [History] 3 Allergy/AdvReac Type Severity Reaction Status Date / Time No Known Allergies Allergy Verified 09/17/17 12:33 - Meds/Allergy Pre-op Review Medications Reviewed: Yes Allergies Reviewed: Yes Beta Blockers on Current Med List: Yes If Beta Blockers taken, Date/Time (Last Dose taken): 13:45 03/17/2018 Anesthesia Results - Labs 03/17/18 00:46 03/17/18 00:46 Echo with Saline Contrast Name: Ximena Fritz Date of Study: 09/17/2017 Impressions: No evidence of pulmonary hypertension. Mildly dilated left ventricle. Severe global and segmental left ventricular systolic dysfunction. LVEF 30-35%. No significant valvular dysfunction. - Imaging EKG: report reviewed (SR) Anesthesia Exam Vital Signs/O2 Sat, Most Current Temp Pulse Resp BP Pulse Ox 97.9 F 76 16 90/59 93 03/17/18 14:43 03/17/18 14:43 03/17/18 14:43 03/17/18 14:43 03/17/18 14:43 NPO (# of Hours): > 8 hrs Pain Scale: 0 Pain Scale Used: Numeric (1 - 10)
[2018-03-17] MEDS ORDERED: Lidocaine -MPF 2% 5 ML VIAL ONE (17:00)
[2018-03-17] MEDS ORDERED: Bupivacaine-MPF 0.25% 10 ML VIAL ONE (17:00)
[2018-03-17] MEDS ORDERED: Lidocaine/EPI 1:100k 1% 20 ML VIAL ONE ×2 (17:00→17:02)
[2018-03-17] MEDS ORDERED: Dexmedetomidine HCl 200 MCG/50 ML MLS IVC ONE (17:01)
[2018-03-17] MEDS ORDERED: Tetracaine/PF 20 MG/2 ML AMPUL ONE (17:01)
[2018-03-17] MEDS ORDERED: ROPIVACAINE HCL/PF 0.5% 30 ML VIAL ONE (17:01)
[2018-03-17] MEDS ORDERED: Propofol 500 MG/50 ML INFUS..BTL ONE ×4 (17:02→22:05)
[2018-03-17] MEDS ORDERED: *HR* FentaNYL (PF) 100 MCG/2 ML VIAL ONE (17:02)
[2018-03-17] MEDS ORDERED: *HR* Midazolam HCl 2 MG/2 ML VIAL ONE (17:02)
[2018-03-17] MEDS ORDERED: Lidocaine -MPF 2% 2 ML VIAL ONE (17:04)
--- NOTE | 2018-03-17 18:30 | Anesthesia Procedures ---
Date of Encounter: 03/17/18 Time of Encounter: 18:12 Procedures: Anesthesia - Nerve Block Procedure Date: 03/17/18 Time: 18:12 Surgical Procedure: right ORIF elbow and wrist Checklist: Correct Patient Identifier, Correct procedure, History checked Correct side: Right Monitor Applied: BP, Pulse Oximetry Supplemental Oxygen via Nasal Cannula (L/min): 2 Sedation: Versed (mg): 2 Sedation: Fentanyl (mcg): 50 Indication: Primary Anesthesia Block Type: Supraclavicular, Other (ICB) Catheter placed: No Sterile Technique: Yes Ultrasound used: Yes Anatomy identified: Yes Visual spread of Local: Yes Neuro Stimulation: No Blood on Needle Aspiration: No Smooth Injection of Local: Yes Pain with Injection of Local: No Prep: Chlorhexadine Needle: 22 x 50 mm Stimuplex Local: Other (2ml 2% lido skin local, 5ml lido 1% with 1:100,000k epi, 16mcg precedex 4ml, 2ml tetracaine, and 21ml of 0.5% rop plain all for SCP, 10ml 0.25 % bup plain for ICB ) Volume (cc): 42 Number of Attempts: 1 Complications: None/effective block Vitals: vss though out, block per request of surgeon.
[2018-03-17] MEDS ORDERED: *HR* PHENYLEPHRINE 1,000 MCG/10 ML SYRINGE IVP ONE ×2 (18:46→22:51)
[2018-03-17] MEDS ORDERED: EPHEDrine 50 MG/ML VIAL ONE (18:50)
[2018-03-17] MEDS ORDERED: *HR* Propofol 200 MG/20 ML VIAL IVP ONE ×2 (19:19→22:05)
[2018-03-17] MEDS ORDERED: *HR* Phenylephrine 10 MG/ML VIAL ONE (19:35)
[2018-03-17] MEDS ORDERED: Lacri-Lube 3.5 GM TUBE ONE (21:50)
[2018-03-17] MEDS ORDERED: Naloxone 0.4 MG/ML INJ IVP PRN (23:48)
[2018-03-17] MEDS ORDERED: Ondansetron 4 MG/2 ML VIAL IVP PRN (23:48)
[2018-03-17] MEDS ORDERED: Acetaminophen 325 MG TABLET PO PRN (23:48)
--- NOTE | 2018-03-18 00:08 | Anesthesia Evaluation Post Op ---
Date of Encounter: 03/18/18 Time of Encounter: 00:08 - Vital Signs Vital Signs: Last Vital Signs Temp 97.6 F 03/17/18 23:48 Pulse 90 03/17/18 23:58 Resp 20 03/17/18 23:58 BP 97/73 03/17/18 23:58 Pulse Ox 99 03/17/18 23:58 - Lungs Lungs: Clear Ascult./Percussion - Airway Airway: Non-obstructed - Cardiovascular Regular Rate - Mental Status Mental Status: Alert & Oriented, Answers Appropriately - Pain Pain Scale: 1 - Nausea Vomiting Nausea Vomiting: Not Present - Hydration Hydration: NPO - Discharge PostOp Status: Transfer Patient to floor
[2018-03-18] MEDS: ceFAZolin 2,000 MG in 0.9 % Sodium Chloride 100 ML IVPB SCH ×4 (01:10→23:40)
[2018-03-18] MEDS: *HR* Heparin 5,000 UNIT/ML VIAL SQ SCH ×3 (05:56→20:29)
[2018-03-18] MEDS: Ketorolac 30 MG/ML VIAL IVP PRN (05:56)
[2018-03-18] MEDS: Aspirin Enteric Coated 81 MG Tablet PO SCH (07:54)
[2018-03-18] MEDS: BuPROPion SR (12 HR) 150 MG TABLET PO SCH (07:55)
[2018-03-18] MEDS: *HR* LORazepam 1 MG TABLET PO SCH ×3 (07:55→20:30)
[2018-03-18] MEDS: *HR* OxyCODONE/APAP 5/325 TABLET PO PRN ×4 (07:55→20:30)
[2018-03-18] MEDS ORDERED: Metoprolol XL (24 HR) Succ 50 MG TAB.ER.24H PO SCH (09:00)
[2018-03-18 11:08] LABS: Basophils % 0.3 %; Eosinophils # 0.1 K/mcL (0.0-0.6); Eosinophils % 0.6 %; Hematocrit 34.9 % (35.3-44.9); Immature Granulocytes % 0.4 % (0-4); Lymphocytes # 1.1 K/mcL (0.6-4.6); Lymphocytes % 9.9 %; Mean Corpuscular HGB Conc 30.9 g/dL (31.6-35.5); Mean Corpuscular Hemoglobin 24.7 pg (28.0-33.3); Mean Corpuscular Volume 79.9 fL (83.0-100.0); Mean Platelet Volume 10.1 fL (9.4-12.4); Monocytes # 1.5 K/mcL (0.0-1.3); Monocytes % 13.8 %; Neutrophils # 8.4 K/mcL (1.6-8.9); Platelet Count 202 K/mcL (140-400); Red Blood Count 4.37 M/mcL (3.82-4.97); Red Cell Distribution Width 15.2 % (11.5-14.5)
[2018-03-18 11:09] LABS: Hemoglobin 10.8 g/dL (11.5-15.4)
[2018-03-18 11:26] LABS: BUN/Creatinine Ratio 35 (6-26); Blood Urea Nitrogen 32 mg/dL (8-23); Calcium 8.6 mg/dL (8.6-10.3); Carbon Dioxide 21 mEq/L (23-29); Chloride 108 mEq/L (98-107); Glucose 131 mg/dL (70-105); Osmolality,Calculated 291 (280-300); Sodium 136 mEq/L (136-145); eGFR For African Americans > 60 (> 60); eGFR For Non-African Americans > 60 (> 60)
--- NOTE | 2018-03-18 16:14 | Orthopedics Progress Note ---
Date of Encounter: 03/18/18 Time of Encounter: 12:30 - Assessment and Plan (1) Radius and ulna distal fracture Current Visit: Yes Status: Acute POD#1 s/p - right distal radius and distal ulna ORIF, open elbow reduction Leave postop splint in place. Ice and elevate RUE. NWB Continue working finger ROM as tolerated Due to open fracture, will require 8 doses of cefazolin from time of surgery. Has currently received 3/8 doses. Pain control per hospitalist. Will follow up with Gema Fitzgerald PA-C in [facility] office on 03/25/18 at 11:45am. Qualifiers: Encounter type: initial encounter Fracture type: open Open fracture type : open type I or II Laterality: right Qualified Code(s): S52.501B - Unspecified fracture of the lower end of right radius, initial encounter for open fracture type I or II; S52.601B - Unspecified fracture of lower end of right ulna, initial encounter for open fracture type I or II (2) Elbow dislocation Current Visit: Yes Status: Acute Plan for right elbow open reduction, possible internal joint stabilization today with the wrist ORIF. Qualifiers: Encounter type: initial encounter Laterality: right Qualified Code(s): S53.104A - Unspecified dislocation of right ulnohumeral joint, initial encounter (3) Right knee pain Current Visit: Yes Status: Acute Xrays showed no fracture. Continue with conservative treatment. Ice and elevate, Motion and weight bearing as tolerated. Qualifiers: Chronicity: acute Qualified Code(s): M25.561 - Pain in right knee Subjective Principal diagnosis: POD#1 s/p - Right distal radius and ulnar ORIFs, open reduction elbow 03/17 Interval history: Patient doing better today. States still having moderate amount of pain but is much more tolerable compared to yesterday. States fingers have intermittent numbess and she still is unable to full extend fingers on own. Denies any other concerns. She has been trying to keep arm elevated and in sling. Objective Vital signs: Vital Signs Temp Pulse Resp BP Pulse Ox 03/18/18 14:53 99.0 F 83 16 106/70 93 03/18/18 10:32 98.3 F 80 18 115/79 95 03/18/18 06:31 99.0 F 81 18 113/79 98 03/18/18 03:56 98.1 F 95 18 118/82 99 03/18/18 01:17 98.3 F 90 16 110/77 03/18/18 01:00 98 03/18/18 00:45 98.0 F 87 18 92/64 98 03/18/18 00:08 97.8 F 90 20 107/73 100 03/17/18 23:58 90 20 97/73 99 03/17/18 23:48 97.6 F 88 24 114/53 94 03/17/18 18:20 76 131/62 96 03/17/18 18:05 76 16 121/74 98 Intake and Output 03/18/18 03/18/18 03/18/18 07:59 15:59 23:59 Intake Total 100 / 100 220 / 220 Output Total 200 / 200 Balance -100 / -100 220 / 220 Intake: IV Fluids 100 / 100 100 / 100 Ancef 2,000 MG In 0.9 % Sodium 100 / 100 100 / 100 Chloride 100 ML @ 200 mls/hr IVPB Q8HR [facility] Rx#:[id number] Oral 120 / 120 Output: Urine 200 / 200 Other: Meal Lunch Percent of Meal Consumed 75% # Voids 1 Incision: clean and dry (postoperative sugar tong splint in place to RUE with no visible drainage. limited finger flexion, unable to extend fingers. cap refill <3 seconds to all digits.) - Labs CBC & BMP: 03/18/18 10:43 03/18/18 10:43 Labs: Abnormal lab results WBC 11.2 K/mcL (4.3-11.1) H 03/18/18 10:43 Hgb 10.8 g/dL (11.5-15.4) L D 03/18/18 10:43 Hct 34.9 % (35.3-44.9) L 03/18/18 10:43 MCV 79.9 fL (83.0-100.0) L 03/18/18 10:43 MCH 24.7 pg (28.0-33.3) L 03/18/18 10:43 MCHC 30.9 g/dL (31.6-35.5) L 03/18/18 10:43 RDW 15.2 % (11.5-14.5) H 03/18/18 10:43 Monocytes # 1.5 K/mcL (0.0-1.3) H 03/18/18 10:43 Chloride 108 mEq/L (98-107) H 03/18/18 10:43 Carbon Dioxide 21 mEq/L (23-29) L 03/18/18 10:43 BUN 32 mg/dL (8-23) H 03/18/18 10:43 BUN/Creatinine Ratio 35 (6-26) H 03/18/18 10:43 Glucose 131 mg/dL (70-105) H 03/18/18 10:43 - VTE Documentation of Mechanical Device: Intermittent pneumatic compression device Consult Discharge Plan - Plan Referrals: ColopySushil DO [Primary Care Provider] -
--- NOTE | 2018-03-18 18:16 | Internal Med Progress Note ---
Date of Encounter: 03/18/18 Time of Encounter: 13:00 - Assessment and plan (1) Radius and ulna distal fracture Current Visit: Yes Status: Acute Assessment and plan: POD#1 s/p - right distal radius and distal ulna ORIF, open elbow reduction Orthopedic surgeon following with recommendations for 8 doses of cefazolin Qualifiers: Encounter type: initial encounter Fracture type: open Open fracture type : open type I or II Laterality: right Qualified Code(s): S52.501B - Unspecified fracture of the lower end of right radius, initial encounter for open fracture type I or II; S52.601B - Unspecified fracture of lower end of right ulna, initial encounter for open fracture type I or II (2) Paroxysmal atrial fibrillation Current Visit: No Status: Chronic Assessment and plan: Rate control; patient has AICD. Not on anticoagulation due to history of bleed. Continue home medications (3) Cardiomyopathy Current Visit: No Status: Chronic Assessment and plan: Nonischemic cardiomyopathy;EF of 35%. No evidence of acute heart failure Continue cardiac meds. Qualifiers: Cardiomyopathy type: unspecified Qualified Code(s): I42.9 - Cardiomyopathy , unspecified (4) Hypothyroid Current Visit: No Status: Chronic Assessment and plan: Continue home Synthroid. Qualifiers: Hypothyroidism type: unspecified Qualified Code(s): E03.9 - Hypothyroidism , unspecified (5) DVT prophylaxis Current Visit: No Status: Acute Assessment and plan: Subcutaneous heparin - Time Spent With Patient Total time spent is greater than 50% in coordination of care (as documented) at patient's floor/unit and/or counseling patient: - Subjective Interval history: Patient resting comfortably this morning POD#1 s/p - right distal radius and distal ulna ORIF, open elbow reduction 5 - Constitutional Vitals: Temp Pulse Resp BP Pulse Ox 99.0 F 83 16 106/70 93 03/18/18 14:53 03/18/18 14:53 03/18/18 14:53 03/18/18 14:53 03/18/18 14:53 General appearance: Present: A&O X 3, no acute distress - Respiratory Respiratory exam: Present: CTAB. Absent: accessory muscle use, rales, rhonchi, wheezes - Cardiovascular Cardiovascular exam: Present: RRR, +S1, +S2. Absent: diastolic murmur, gallop, rubs, systolic murmur Internal Medicine: Result - Labs CBC & Chem 7: 03/18/18 10:43 03/18/18 10:43 Labs: Short CBC 03/18/18 Range/Units 10:43 WBC 11.2 H (4.3-11.1) K/mcL Hgb 10.8 L D (11.5-15.4) g/dL Hct 34.9 L (35.3-44.9) % Plt Count 202 (140-400) K/mcL Neutrophils # 8.4 (1.6-8.9) K/mcL BMP 03/18/18 10:43 Sodium 136 Potassium 4.0 Chloride 108 H Carbon Dioxide 21 L BUN 32 H Creatinine 0.92 Glucose 131 H Calcium 8.6 - ABG Interpretation ABG results: PT/INR, D-dimer PT 11.9 Seconds (9.4-12.1) 03/17/18 00:46 - Impressions Impressions Fluoroscopy 03/17/18 00:00 IMPRESSION: Interval ORIF of comminuted and displaced fractures of the distal radius and ulna without adverse features evident. D/ / 03/17/2018 22:05:19 David Mahan MD / Leela Zelaya Interpreting Provider: David Mahan MD Fluoroscopy 03/17/18 21:23 IMPRESSION: Intraprocedural fluoroscopic spot images as above. See separate procedure report for more information. D/ / 03/18/2018 07:12:02 Edgard Peoples MD / leticia Interpreting Provider: Edgard Peoples MD - VTE Documentation of Mechanical Device: Intermittent pneumatic compression device Consult Discharge Plan - Plan Referrals: Sushil Robledo DO [Primary Care Provider] -
[2018-03-18] MEDS: Metoprolol XL (24 HR) Succ 50 MG TAB.ER.24H PO SCH (20:30)
[2018-03-19] MEDS: *HR* OxyCODONE/APAP 5/325 TABLET PO PRN ×4 (00:31→20:40)
[2018-03-19] MEDS: *HR* Heparin 5,000 UNIT/ML VIAL SQ SCH ×3 (05:41→21:39)
[2018-03-19] MEDS: Aspirin Enteric Coated 81 MG Tablet PO SCH (07:42)
[2018-03-19] MEDS: ceFAZolin 2,000 MG in 0.9 % Sodium Chloride 100 ML IVPB SCH ×3 (07:42→23:18)
[2018-03-19] MEDS: BuPROPion SR (12 HR) 150 MG TABLET PO SCH (07:42)
[2018-03-19] MEDS: *HR* LORazepam 1 MG TABLET PO SCH ×3 (07:42→21:38)
[2018-03-19] MEDS: Ketorolac 30 MG/ML VIAL IVP PRN (11:51)
--- NOTE | 2018-03-19 15:21 | Orthopedics Progress Note ---
Date of Encounter: 03/19/18 Time of Encounter: 14:30 - Assessment and Plan (1) Radius and ulna distal fracture Current Visit: Yes Status: Acute POD#2 s/p - right distal radius and distal ulna ORIF, open elbow reduction Leave postop splint in place. Ice and elevate RUE. NWB Continue working finger ROM as tolerated Due to open fracture, will require 8 doses of cefazolin from time of surgery. Has currently received 5/8 doses. From orthopedic standpoint ok to DC home after finish 8/8 doses. Pain control per hospitalist. Will follow up with Gema Fitzgerald PA-C in [facility] office on 03/25/18 at 11:45am. Qualifiers: Encounter type: initial encounter Fracture type: open Open fracture type : open type I or II Laterality: right Qualified Code(s): S52.501B - Unspecified fracture of the lower end of right radius, initial encounter for open fracture type I or II; S52.601B - Unspecified fracture of lower end of right ulna, initial encounter for open fracture type I or II (2) Elbow dislocation Current Visit: Yes Status: Acute Plan for right elbow open reduction, possible internal joint stabilization today with the wrist ORIF. Qualifiers: Encounter type: initial encounter Laterality: right Qualified Code(s): S53.104A - Unspecified dislocation of right ulnohumeral joint, initial encounter (3) Right knee pain Current Visit: Yes Status: Acute Xrays showed no fracture. Continue with conservative treatment. Ice and elevate, Motion and weight bearing as tolerated. Qualifiers: Chronicity: acute Qualified Code(s): M25.561 - Pain in right knee Subjective Principal diagnosis: POD#2 s/p - Right distal radius and ulnar ORIFs, open reduction elbow 03/17 Interval history: Patient doing better today. States still having moderate amount of pain but is tolerable with the percocet. States numbness to fingers is improved a little and she states she can move her fingers a little more. Denies any other concerns. She has been trying to keep arm elevated and in sling. States she used ice to arm yesterday but none today yet. Objective Vital signs: Vital Signs Temp Pulse Resp BP Pulse Ox 03/19/18 11:40 98.1 F 80 16 93/64 96 03/19/18 07:01 97.9 F 75 16 101/70 95 03/19/18 04:28 98.1 F 75 16 95/68 93 03/18/18 23:54 98.1 F 80 16 97/64 94 03/18/18 19:32 98.3 F 77 16 112/77 96 Intake and Output 03/18/18 03/19/18 03/19/18 23:59 07:59 15:59 Intake Total 240 / 240 640 / 640 580 / 580 Balance 240 / 240 640 / 640 580 / 580 Intake: IV Fluids 100 / 100 100 / 100 Ancef 2,000 MG In 0.9 % Sodium 100 / 100 100 / 100 Chloride 100 ML @ 200 mls/hr IVPB Q8HR [facility] Rx#:[id number] Oral 240 / 240 540 / 540 480 / 480 Other: Meal Dinner Lunch Percent of Meal Consumed 70% 100% Stool Size Moderate Stool Consistency soft formed Stool Characteristics Normal for Patient Stool Color Brown # Voids 1 1 1 # Bowel Movements 1 Incision: clean and dry (postop dressings/splint intact to RUE, wearing sling. continued restriction to finger motion, mildly improved from yesterday. cap refill <3 seconda) - Labs CBC & BMP: 03/18/18 10:43 03/18/18 10:43 Labs: Abnormal lab results WBC 11.2 K/mcL (4.3-11.1) H 03/18/18 10:43 Hgb 10.8 g/dL (11.5-15.4) L D 03/18/18 10:43 Hct 34.9 % (35.3-44.9) L 03/18/18 10:43 MCV 79.9 fL (83.0-100.0) L 03/18/18 10:43 MCH 24.7 pg (28.0-33.3) L 03/18/18 10:43 MCHC 30.9 g/dL (31.6-35.5) L 03/18/18 10:43 RDW 15.2 % (11.5-14.5) H 03/18/18 10:43 Monocytes # 1.5 K/mcL (0.0-1.3) H 03/18/18 10:43 Chloride 108 mEq/L (98-107) H 03/18/18 10:43 Carbon Dioxide 21 mEq/L (23-29) L 03/18/18 10:43 BUN 32 mg/dL (8-23) H 03/18/18 10:43 BUN/Creatinine Ratio 35 (6-26) H 03/18/18 10:43 Glucose 131 mg/dL (70-105) H 03/18/18 10:43 - VTE Documentation of Mechanical Device: Intermittent pneumatic compression device Consult Discharge Plan - Plan Referrals: ColopySushil DO [Primary Care Provider] -
--- NOTE | 2018-03-19 18:12 | Discharge Summary ---
- NOTES TO OUTPATIENT PROVIDER Notes to Outpatient Provider: none Orders not resulted at time of discharge: Pending orders 03/17/18 XR wrist complete 3V RT [XR] Routine 03/17/18 21:23 XR elbow complete RT [XR] Routine Date of Encounter: 03/19/18 Time of Encounter: 11:00 - Discharge Diagnosis (1) Radius and ulna distal fracture Priority: Primary Status: Acute Qualifiers: Encounter type: initial encounter Fracture type: open Open fracture type : open type I or II Laterality: right Qualified Code(s): S52.501B - Unspecified fracture of the lower end of right radius, initial encounter for open fracture type I or II; S52.601B - Unspecified fracture of lower end of right ulna, initial encounter for open fracture type I or II (2) Paroxysmal atrial fibrillation Priority: Secondary Status: Chronic (3) Cardiomyopathy Priority: Secondary Status: Chronic Qualifiers: Cardiomyopathy type: unspecified Qualified Code(s): I42.9 - Cardiomyopathy , unspecified (4) Hypothyroid Priority: Secondary Status: Chronic Qualifiers: Hypothyroidism type: unspecified Qualified Code(s): E03.9 - Hypothyroidism , unspecified Hospital course: Patient is a 67-year-old female with past medical history significant for nonischemic cardiomyopathy, hypothyroidism, chronic systolic heart failure s/p AICD, and paroxysmal A. fib not on anticoag due to GI bleeding who presents after a fall. She slipped or missed a step and fell forward going down 14 steps at home. In the ER, patient was found to have an acute fracture dislocation of the elbow joint. Also found to have distal ulnar and radial comminuted fractures on the right. She was admitted to the medical surgical floor for further evaluation. During patients hospital stay orthopedics was consulted with recommendations for right distal radius and distal ulna ORIF, open elbow reduction on 03/17/18. She was then given 8 doses cefazolin. She will be discharged to follow-up orthopedics as outpatient. - Time Spent with Patient Total time spent providing and/or coordinating discharge services: Less than 30 minutes - Discharge Medications Prescriptions: HYDROcodone/Acet 5/325 mg [[place] 5-325 mg] 1 tab PO Q6HR PRN 5 Days #20 tablet PRN Reason: Moderate Pain LORazepam [Ativan] 1 mg PO TID 5 Days #18 tablet Home Medications: BuPROPion SR (12 HR) [Wellbutrin SR] 150 mg PO DAILY 09/17/17 [History] Citalopram Hydrobromide [Citalopram HBr] 20 mg PO DAILY 09/17/17 [History] Levothyroxine [Synthroid] 50 mcg PO DAILY 09/17/17 [History] Metoprolol Succinate 200 mg PO DAILY 09/17/17 [History] Omeprazole [PriLOSEC] 20 mg PO DAILY 09/17/17 [History] Aspirin [Lo-Dose Aspirin EC] 81 mg PO DAILY 03/17/18 [History] Losartan Potassium [Cozaar] 50 mg PO DAILY 03/17/18 [History] HYDROcodone/Acet 5/325 mg [[place] 5-325 mg] 1 tab PO Q6HR PRN 5 Days #20 tablet 03/19/18 [Rx] LORazepam [Ativan] 1 mg PO TID 5 Days #18 tablet 03/19/18 [Rx] Allergies/Adverse Reactions: 3 Allergy/AdvReac Type Severity Reaction Status Date / Time No Known Allergies Allergy Verified 09/17/17 12:33 Date of admission: 03/16/18 23:23 Primary care physician: Sushil Robledo - Constitutional Vitals: Temp Pulse Resp BP Pulse Ox 98.6 F 83 16 99/68 93 03/19/18 16:28 03/19/18 16:28 03/19/18 16:28 03/19/18 16:28 03/19/18 16:28 General appearance: Present: A&O X 3, no acute distress - Respiratory Respiratory exam: Present: CTAB. Absent: accessory muscle use, rales, rhonchi, wheezes - Cardiovascular Cardiovascular exam: Present: RRR, +S1, +S2. Absent: diastolic murmur, gallop, rubs, systolic murmur - Patient Status Disposition: Home, Self-Care Condition: Good - Discharge Instructions Follow Up With: Sushil Robledo DO [Primary Care Provider] - - VTE Documentation of Mechanical Device: Intermittent pneumatic compression device
[2018-03-19] MEDS: Metoprolol XL (24 HR) Succ 50 MG TAB.ER.24H PO SCH (21:38)
[2018-03-20] MEDS ORDERED: *HR* FentaNYL (PF) 100 MCG/2 ML VIAL IVP ONE (02:38)
[2018-03-20] MEDS: *HR* Heparin 5,000 UNIT/ML VIAL SQ SCH ×2 (05:50→14:32)
[2018-03-20] MEDS: *HR* HYDROcodone/Acet 5/325 mg TABLET PO PRN ×2 (05:50→12:20)
[2018-03-20] MEDS: Aspirin Enteric Coated 81 MG Tablet PO SCH (09:17)
[2018-03-20] MEDS: *HR* LORazepam 1 MG TABLET PO SCH ×2 (09:17→14:32)
[2018-03-20] MEDS: BuPROPion SR (12 HR) 150 MG TABLET PO SCH (09:17)
[2018-03-20] MEDS: *HR* OxyCODONE/APAP 5/325 TABLET PO PRN ×2 (09:18→14:32)
[2018-03-20] MEDS: ceFAZolin 2,000 MG in 0.9 % Sodium Chloride 100 ML IVPB SCH ×2 (10:33→12:20)
[2018-03-20 14:41] VITALS: BP 121/83
--- NOTE | 2018-03-20 18:06 | Internal Med Progress Note ---
Date of Encounter: 03/20/18 Time of Encounter: 11:00 - Assessment and plan (1) Radius and ulna distal fracture Current Visit: Yes Status: Acute Assessment and plan: POD#2 s/p - right distal radius and distal ulna ORIF, open elbow reduction Orthopedic surgeon following with recommendations for 8 doses of cefazolin Patient will be discharged today Qualifiers: Encounter type: initial encounter Fracture type: open Open fracture type : open type I or II Laterality: right Qualified Code(s): S52.501B - Unspecified fracture of the lower end of right radius, initial encounter for open fracture type I or II; S52.601B - Unspecified fracture of lower end of right ulna, initial encounter for open fracture type I or II - Time Spent With Patient Total time spent is greater than 50% in coordination of care (as documented) at patient's floor/unit and/or counseling patient: - Subjective Interval history: Patient will be discharged today. - Constitutional Vitals: Temp Pulse Resp BP Pulse Ox 98.4 F 76 14 121/83 94 03/20/18 14:40 03/20/18 14:40 03/20/18 14:40 03/20/18 14:40 03/20/18 14:40 General appearance: Present: A&O X 3, no acute distress Internal Medicine: Result - Labs CBC & Chem 7: 03/18/18 10:43 03/18/18 10:43 - ABG Interpretation ABG results: PT/INR, D-dimer PT 11.9 Seconds (9.4-12.1) 03/17/18 00:46 - Impressions Impressions Ribs X-Ray 03/20/18 02:39 IMPRESSION: Nondisplaced right 5th rib fracture along the lateral arc. No apparent left rib fracture. D/ / Juancarlos Corbett / Juancarlos Corbett Interpreting Provider: Juancarlos Corbett - VTE Documentation of Mechanical Device: Intermittent pneumatic compression device Consult Discharge Plan - Plan Instructions: Open Reduction and Internal Fixation of an Arm Fracture (DC) Additional Instructions: Call you PCP, Dr. Meza, or report to the Emergency Department for any s/sx of an infection. Signs include fever greater than 101.5, chills, sweating, excessive pain, swelling, nausea or vomiting. Keep cast clean and dry. Cover when showering. No driving until cleared by physician. Follow-up appointments: If there is not an appointment listed below, please call your physician and schedule a follow-up appointment. If you have congestive heart failure and your symptoms return, make an appointment with your physician. Medication List: Carry an up to date list of medications you are taking at all time. We have given you an updated medication list including any new medications that you have been prescribed. Please provide that list to your primary provider Symptoms: If your condition changes or you experience any of the following symptoms, notify your physician immediately: Unusual or worsening pain, fever, persistent nausea and vomiting, bleeding, increase in swelling (especially in your legs), sudden weight gain, extreme dizziness, chest pain, increased drainage or redness from a wound or incision. Go to the emergency department if you experience a problem with breathing. Weights: If you have a history of swelling or shortness of breath, weigh yourself daily and notify your physician if you have a weight gain of two or more pounds in one day or 5 or more pounds in a week. If you experience any of the warning signs for stroke: Sudden numbness or weakness of the face, arm or leg; especially on one side of the body, sudden confusion, trouble speaking or understanding, sudden trouble seeing in one or both eyes, sudden trouble walking, dizziness, loss of balance or coordination, sudden sever headache with no cause; Call 911 or go to the emergency room. Stroke is a medical emergency. Some risk factors for stroke: Age, cigarette smoking, diabetes, excessive alcohol consumption, family history , high blood pressure, overweight, physical inactivity, prior stroke, heart attack, diagnosis of carotid artery stenosis or other artery disease. If you smoke, STOP: Smoking or tobacco use significantly increases your risk of heart and lung disease. Your chance of disease greatly increases if you continue to smoke. For more information, call the [place] tobacco quit line for smoking cessation QUIT-NOW ( ) Referrals: Gema Fitzgerald PAC [Physician Bed [employer]ber] - 03/25/18 11:45 am Sushil Robledo DO [Primary Care Provider] - Prescriptions: HYDROcodone/Acet 5/325 mg [[place] 5-325 mg] 1 tab PO Q6HR PRN 5 Days #20 tablet PRN Reason: Moderate Pain LORazepam [Ativan] 1 mg PO TID 5 Days #18 tablet
--- NOTE | 2018-03-24 17:15 | Operative Note ---
Date of procedure: 03/17/18 Pre-op diagnosis: Right wrist open distal radius and ulnar fracture, unstable elbow post lat Post-op diagnosis: same (Right wrist grade 2 open distal radius fracture (3+ distal fragments), grade 1 open distal ulnar fracture. Injury to median nerve at proximal wrist level. Right elbow unstable posterior lateral dislocation.) Procedure: Right wrist irrigation and debridement of skin, subcutaneous tissue, muscle and bone of distal radius Right wrist open reduction internal fixation of distal radius Right wrist neurolysis of median nerve Right wrist irrigation and debridement of skin and subcutaneous tissue of distal ulna Right wrist open reduction internal fixation of distal ulna Right elbow open reduction with repair of lateral ulnar collateral ligament complex Right elbow application of hinged multiplanar external fixator, internal joint stabilizer Implants: [employer] Geminus plating system [employer] Internal Joint Stabilizer Anesthesia: STAR, regional Surgeon: Jeff Meza Was there an middle school assistant principal present: No Estimated blood loss (cc): 20 Tourniquet Time (Minutes): 120 (Down 44 minutes, then up for another 77 minutes) Specimen: 0 Procedure in Detail: The patient received IV antibiotics in the holding area and also underwent a supraclavicular block by the anesthesia department. The patient was brought into the operating room and placed on the OR table in supine position with the affected upper extremity on a hand table. The patient also underwent monitored anesthesia care. A tourniquet was placed on the right arm close to the axilla and the upper extremity was then prepped and draped in usual sterile fashion. A timeout was performed. The patient had 2 open wounds associated with the distal radius and the ulnar styloid. There was a 2 cm skin tear on the volar aspect of the proximal wrist, fairly midline - slightly radial. This was associated with a distal wrist fracture, making this a Grade 2 open fracture. On the ulnar aspect of the wrist was a tiny poke hole with the ulna fracture was felt below, making this a grade 1 open fracture. The wounds were copiously irrigated with normal saline. The extremity was then elevated, exsanguinated with an Taz wrap and the tourniquet was raised to a pressure of 250 mmHg. An 8 cm apex ulna curvilinear incision was made over the volar radial aspect of the wrist, directly over the FCR tendon ending at the distal wrist flexion crease, incorporating the open wound at the midline. The skin edges from open wound was sharply debrided. The palmaris longus tendon and FDS muscle belly was seen below. On palpation he could feel this wrist fracture beneath. The median nerve was directly in the path. I dissected of the median nerve, the nerve was traumatized with tearing of the epineurium. The fascicles were noted to be intact. Nerve was dissected out and there was a 2 cm length of the nerve which appeared traumatized. The FCR sheath was split down the midline, the tendon was retracted over medially and the base of the sheath was also split the midline. The deep fascia and the FPL muscle/tendon was also retraction medially exposing the pronator quadratus. This was then elevated off in an L-shaped manner subperiosteally, exposing the fracture site. The fracture was very comminuted in this area and the muscle was debrided elevating it off. Once the fractures were exposed, and culture irrigated out the fracture and using curettes to debride the fracture remove small fracture fragments. The fracture was mobilized, and reduced with the use of a freer elevator, and provisionally pinned in place using a 0.062 K wire driven down from the tip of the radial styloid into the proximal shaft. The metaphyseal bone was very comminuted and very unstable. There was a sagittal split going distally along with coronal splits in the dorsum but for the most part, the distal fragments held together well. A lamina physiotherapist's assistant was also used to help maintain radial shaft alignment. Next a 4 hole right sided narrow plate was applied to the volar surface and secured with a bone screw through the slotted hole. Once we had appropriate position plate, it was further secured with a locking screw in hole #4 in the metaphyseal bone. \ The distal fragment was held against the plate restoring volar tilt, and temporary fixation wires were placed in the radial and ulnar columns securing the distal fragment. Next a compression screw was then placed distally and the ulnar column further securing the distal fragment. The remaining holes were then filled with locking screws in standard technique, using variable angle as needed. The K wires were removed and these holes were also filled with locking screws. The remaining holes in the shaft of the plate were then filled with locking screws in standard technique. The K wire was removed. Final fluoroscopy shots were taken and saved; checking in AP, lateral, facet views, and a 45 degree supination view making sure the screws were not within the joint. Once satisfactory, the wound was irrigated with normal saline and the pronator quadratus was tacked back down in place with 3-0 Vicryl [id number] sutures. A 5 cm longitudinal incision made on the ulnar crest ending just distal to the ulnar styloid, the subcutaneous tissue was bluntly dissected out. This incision incorporated the puncture wound. Skin and subcutaneous tissue was sharply debrided with scalpel. The dorsal sensory branches of the ulnar nerve were dissected out and tagged with vessel loops. The nerve was crossing over just distal to the ulnar styloid. There were mobilized and retracted out of the way with the vessel loops. Sharply split along the ulnar crest and exposing the ulna head. The fracture was seen at the base of the head, it was a transverse fracture; also with severe comminution. Next a styloid plate was chosen and cut to length with 6 holes. It was then secured on the ulnar crest through the slotted hole. Fluoroscopy was used to check plate placement. The very distal ulna was secured with a 0.054 K wire. This will allow us to get 2 screws distally to the ulnar head. Screw fixation was placed and set technique with comminution of locking and nonlocking screws. When the K wire was pulled out to place a final distal screw, fixation was lost. I placed a unicortical locking screw here but there was still some instability and associated ulnar styloid. Two 0.045 K wires were placed through all styloid and going through the ulnar head and shaft proximally. A 0 FiberWire was placed around the ulnar styloid K wires and going through the TFCC this and wrapped through the plate in a [id number] fashion for further stability. This gave us overall good alignment of the fracture. The tourniquet was deflated at a time under 20 minutes, once again irrigating the wound and obtaining hemostasis with the bipolar electrocautery. The skin incisions were closed with 5-0 nylon mattress and simple sutures. Moving to the elbow, the joint was grossly unstable, dislocating posteriorly and laterally. The tourniquet was down for 44 minutes. The arm was then exsanguinated once again a tourniquet was put back up to a pressure 250 mmHg. A 12 cm oblique incision made on the posterior lateral aspect of the elbow, between the olecranon and the lateral epicondyle. The subcutaneous tissue was bluntly dissected down to the lateral epicondyle, exposing the common extensor tendon. A lateral approach was made splitting the brachialis and triceps along the lateral column, going down to the lateral epicondyle and then distally between the the extensor digitorum communis and extensor communis ulnaris interval. I sharply dissecting down incising through the joint capsule over the radial head. The capsule was incised in line with the incision going towards a radial neck partially releasing the annular ligament. The common extensor tendon was sharply reflected anteriorly and posteriorly centered over the lateral condyle, with one sleeve proximally and distally. Once able to fully evaluate the capitellum, seeing that the elbow was still dislocated posteriorly. It was once again dislocated, the articular surfaces were examined. They were noted to be intact. The joint was reduced. Since the joint was completely unstable with extensive soft tissue stripping, it was necessary to stabilize the joint with a hinged external fixator. The Internal Joint Stabilizer was chosen from [employer]. The appropriate templates were used against the capitellum in order to identify the center of axis of rotation. Next a small trochanter glide was placed against the medial trochlea. I had difficulty positioning the trochlear guide. The K wire guide was centered over the marked off center of rotation. The K wire was driven across, to the medial side, not violating the cortex. The wire was driven parallel to the joint surface and using taking perfect circles to free hand the wire.The wire was parallel to the joint line. Fluoroscopic views showed good wire placement through the center axis of rotation. The depth was measured, I then overdrilled with a 2.7 drillbit. A 40 mm axis pin was then placed. Next the olecranon plate was then positioned. I sharply split the periosteum between the Flexor/extensor masses just distal to the triceps insertion. Position of the plate was checked on fluoroscopy. A bicortical screw was then placed and set technique through the oblong hole, angled distal to the coronoid. Screw and plate placement were checked on lateral view. Once satisfactory a second distal bicortical screw was placed. The final screws placed proximally at the tip of the olecranon. This was drilled under fluoroscopy. The position of the holes checked with depth gauge under direct visualization with the elbow dislocated. This final screw was placed. The connecting arm was then temporarily placed making sure the elbow could be stabilized. This was then removed. Next an Arthrex 5.5 mm x 14.7 mm suture anchor was placed in standard technique at the lateral epicondyle. This was placed just proximal to the axis pin that was left in place. This had 2 strands of #1 FiberWire. The joint capsule was closed with 0 Vicryl [id number] sutures over the radial head. One strand of the FiberWire was used to reattach the lateral ulnar collateral ligament complex. The second FiberWire strand was then used to close the extensor interval running it distally and crossing back proximally, also closing down the brachialis/ lateral triceps interval. A stab incision was made where the axis pin was located. The axis pin was removed prior to complete closure of the second layer. This gave fairly good stability of the elbow joint. The axis pin was then repositioned. The links were then connected to the olecranon plate and screwed into the axis pin. The elbow was then flexed in position with a hand/forearm across patient's face and pronation. The screws and links were then tightened down sequentially. Elbow stability was checked. She has full right congruent range of motion elbow, good progression supination, and no clicking. This was checked on fluoroscopy. The excess linkage pin was then cut short with bolt cutters. The fascia was closed over the plate with 0 Vicryl [id number] sutures. The tourniquet was deflated and the wound was copiously irrigated with normal saline. Hemostasis obtained with bipolar cautery. The fascia was closed deeply with 0 Vicryl and 2-0 Vicryl subcutaneously. The skin was closed with joel. Sterile dressings applied and the patient was placed into a posterior splint and a sugar tong splint. The patient was then taken to the recovery room in stable condition. The patient will be seen at postoperative week #1 for dressing changes and a wound check. The patient placed into a [place] cast. The patient will start range of motion excising the elbow within the limits of the cast. Sterile dressings were applied and the patient placed into a sugar tong splint. Patient was extubated and taken to the recovery room in stable condition. The patient will be seen at postoperative week #1 for dressing changes and placed into a short arm cast.
== END 2018-03-20 18:40 | disposition home or self-care (01) | DRG 501 ==
LOC: EMEROO 19:48 → 3NENU 19:48 → SUATTDRO 23:23 → 3NENU 03-17 00:30
PROVIDERS: ADMIT Family Medicine; ATTEND Hospitalist